=== PATIENT | female | born 1965 | race Caucasian/White ===

== ENCOUNTER 2018-07-06 16:46 | Observation (INO) ==
[2018-07-06 17:21] LABS: Basophils % 0.5 % (0.1-2.0); Eosinophils # 0.2 K/mm3 (0.0-0.4); Eosinophils % 2.5 % (0.1-12.0); Hematocrit 44.5 % (37.0-47.0); Hemoglobin 14.3 g/dL (12.2-16.2); Lymphocytes # 2.6 K/mm3 (0.7-4.5); Lymphocytes % 31.8 % (10-50); Mean Corpuscular HGB Conc 32.1 g/dL (31.8-35.4); Mean Corpuscular Hemoglobin 29.8 pg (27.0-31.2); Mean Corpuscular Volume 92.9 fl (81-99); Mean Platelet Volume 8.4 fl (7.4-10.4); Monocytes # 0.4 K/mm3 (0.1-1.0); Monocytes % 5.2 % (1.7-9.3); Neutrophils # 4.9 K/mm3 (1.8-7.8); Neutrophils % 60.1 % (37.0-80.0); Platelet Count 200 K/mm3 (142-424); Red Blood Count 4.79 M/mm3 (4.20-5.40); Red Cell Distribution Width 12.8 % (11.5-17.5); White Blood Count 8.2 K/mm3 (4.8-10.8)
[2018-07-06 17:37] LABS: Amylase 69 U/L (25-115); Anion Gap 10.6 mEq/L (5-15); Blood Urea Nitrogen 18 mg/dL (7-18); Calcium 9.4 mg/dL (8.5-10.1); Carbon Dioxide 30 mmol/L (21.0-32.0); Chloride 104 mmol/L (98-107); Glucose 105 mg/dL (74-106); Potassium 4.6 mmoL/L (3.5-5.1); Sodium 140 mmol/L (136-145)
[2018-07-06 17:55] LABS: Anion Gap 11.5 mEq/L (5-15); Blood Urea Nitrogen 17 mg/dL (7-18); Calcium 9.2 mg/dL (8.5-10.1); Carbon Dioxide 30 mmol/L (21.0-32.0); Chloride 103 mmol/L (98-107); Creatine Kinase 87 U/L (26-192); Glucose 105 mg/dL (74-106); Lipase 163 u/L (73-393); Potassium 4.5 mmoL/L (3.5-5.1); Sodium 140 mmol/L (136-145)
--- NOTE | 2018-07-06 21:24 | Emergency Department Note ---
ED Disposition Clinical Impression: Obesity (BMI 30.0-34.9), Tobacco use Chest pain Qualifiers: Chest pain type: precordial pain Qualified Code(s): R07.2 - Precordial pain Disposition: Admitted as Observation Condition on Discharge: Good Referrals: Kirby Garcia MD [Primary Care Provider] - - Critical Care Critical Care Time: No Attestation: On 07/06/18, the high probability of a clinically significant, sudden or life threatening deterioration of the following system(s) required my full and direct attention, intervention and personal management. The time I documented below is in addition to time spent performing reported procedures but includes the following listed in this critical care notation. Medical Decision Making - Medical Records Medical records reviewed: Yes: I reviewed the patient's medical records. - Parminder Inquiry Pt receiving controlled substance: No Vital Signs: 07/06/18 17:02 07/06/18 18:42 07/06/18 19:10 Temperature 97.9 F Temperature Source Oral Pulse Rate [Left Radial] 70 61 65 Respiratory Rate 18 Blood Pressure [Right Arm] 158/95 H 131/74 143/78 H Blood Pressure Mean [Right Arm] 116 93 99 Blood Pressure Source [Right Arm] Automatic Cuff Automatic Cuff Automatic Cuff Blood Pressure Position [Right Arm] Sitting Sitting Supine 02 Sat by Pulse Oximetry 96 94 L 97 Oxygen Delivery Method Room Air Room Air Room Air 07/06/18 20:00 Temperature Temperature Source Pulse Rate [Left Radial] 61 Respiratory Rate Blood Pressure [Right Arm] 135/71 Blood Pressure Mean [Right Arm] 92 Blood Pressure Source [Right Arm] Blood Pressure Position [Right Arm] 02 Sat by Pulse Oximetry 92 L Oxygen Delivery Method - Lab Data Lab results reviewed: Yes: I reviewed the patient's lab results. Lab Results 07/06/18 17:10: WBC 8.2, RBC 4.79, Hgb 14.3, Hct 44.5, MCV 92.9, MCH 29.8, MCHC 32.1, RDW 12.8, Plt Count 200, MPV 8.4, Neut % (Auto) 60.1, Lymph % (Auto) 31.8, [place]y % (Auto) 5.2, Eos % (Auto) 2.5, Baso % (Auto) 0.5, Neut # (Auto) 4.9, Lymph # (Auto) 2.6, [place]y # (Auto) 0.4, Eos # (Auto) 0.2, Baso # (Auto) 0.0 07/06/18 17:10: Sodium 140, Potassium 4.6, Chloride 104, Carbon Dioxide 30, Anion Gap 10.6, BUN 18, Creatinine 1.01, Estimated Creat Clear 93, Estimated GFR 58 L, Est GFR ( Amer) 70, Glucose 105, Calcium 9.4, Troponin I < 0.02, Amylase 69 07/06/18 17:10: Sodium 140, Potassium 4.5, Chloride 103, Carbon Dioxide 30, Anion Gap 11.5, BUN 17, Creatinine 1.05 H, Estimated Creat Clear 90, Estimated GFR 55 L, Est GFR ( Amer) 67, Glucose 105, Calcium 9.2, Total Creatine Kinase 87, CK-MB (CK-2) 1.3, CK-MB (CK-2) Rel Index 1.5, Troponin I < 0.02, Lipase 163 Result diagrams: 07/06/18 17:10 07/06/18 17:10 Orders (Tests/Meds): ED MEDICATIONS Discontinued Medications Generic Name Dose Route Start Last Admin Trade Name Freq PRN Reason Stop Dose Admin Aspirin 324 mg 07/06/18 19:17 07/06/18 19:20 Aspirin 81mg Chewable Tablet PO 07/06/18 19:18 324 mg ONCE ONE Administration ORDERS Category Date Time Status XR chest 2V Stat Exams 07/06/18 17:07 Taken ECG Request by /Tran Stat Y 07/06/18 17:07 Ordered - Radiology Data #1 Image(s): Chest Image Reviewed: Yes I reviewed the patient's radiology image Preliminary Findings: Normal/NAD - ECG Data Tracing #1 I reviewed this ECG and interpreted as documented below: Normal Sinus Rhythm: Yes Ischemic changes: non-specific ST-T wave changes Chest Pain HPI - General Chief Complaint: Chest Pain Stated Complaint: ingestion/2wk, possible pulled something in chest Time Seen by Provider: 07/06/18 20:45 Mode of Arrival: Ambulatory Source of Information: Patient, Spouse, Medical Record Limitations: No Limitations Description of Symptoms (Recalled from ER Triage Doc. by RN): c/o pain in the center of her chest, "she feels like she pulled a muscle in her chest". c/o indigestion for 2 weeks. - History of Present Illness HPI narrative: pt with chest pain which started today - sharp and midsternal - new onset - she did have chest pain off-on over the last 2 weeks - no syncope or trauma MD complaint: chest pain indicative of cardiac Onset (ago): hour(s) Duration: intermittent Activity at onset: during rest Pain location: substernal Severity: moderate Quality: sharp Risk Factors for CAD: Family Hx of CAD, Smoking Treatments prior to or on arrival for Cardiac Chest Pain: none - MARIA GUADALUPE Score for Non-Stemi Age of Patient: 50-59 years old Heart Rate: 70-89 bpm Systolic Blood Pressure: 140-159 mmHg Serum Creatinine: 0.80-1.19 mg/dl CHF Killip Class: I-No CHF Other Risk Factors: None Non-Stemi Risk Score: 81 - Related Data On Oral Contraceptives: No Home Medications Medication Instructions Recorded Confirmed No Known Home Medications 07/06/18 07/06/18 Allergies Allergy/AdvReac Type Severity Reaction Status Date / Time No Known Allergies Allergy Verified 07/06/18 17:08 [facility] History - Hepatitis A Screen Drug use history?: No High risk sexual behaviors?: No History of sexually transmitted infection?: No Currently employed?: Yes Childcare worker?: No Do you have indoor plumbing?: Yes Do you have electricity?: Yes Attestation statement:: This patient has been screened for Hepatitis A risk factors. I have reviewed the patient's past medical history: Yes Medical History: Denies:: Diabetes Mellitus Type 1, Diabetes Mellitus Type 2 Other Surgeries: Yes: Amputation: No Fractures: No Comment: Rt kidney removal - Social History Smoking Status: Current every day smoker Tobacco Type: cigarettes # Packs/Day (cigarettes): 1 Alcohol Intake: never Substance Use Type: denies use Occupational Status: employed - Psychiatric History Expresses thoughts of harming self/others: None Suicide Plan Description: No Plan Family Hx:: No significant family history ROS Obtained: Yes All systems reviewed & no additional complaints - Constitutional Constitutional: Denies fever(s) - Eyes Eyes: Denies change in vision - ENT Ears, Nose, Mouth, and Throat: Denies otalgia - Cardiovascular Cardiovascular: Reports chest pain, Denies radiating jaw, neck or arm pain - Respiratory Respiratory: No cough - Gastrointestinal Gastrointestingal: Denies: abdominal pain - Genitourinary Female Genitourinary: Denies flank pain - Musculoskeletal Musculoskeletal: Reports joint pain - Integumentary/Breasts Skin/Breast: Denies rash - Neurologic Neurologic: Denies seizure-like activity Physical Exam - General General appearance: alert, in no apparent distress, obese - Head Head exam: atraumatic - Eye Eye exam: Present: PERRL, EOMI. Absent: scleral icterus - ENT ENT exam: Present: mucous membranes moist - Neck Neck exam: Present: trachea midline - Respiratory Respiratory exam: Present: normal lung sounds bilaterally. Absent: respiratory distress - Cardiovascular Cardiovascular exam: Present: regular rate, systolic murmur - Abdominal Exam Abdominal exam: Present: soft - Extremities Exam Extremities exam: Present: normal inspection. Absent: calf tenderness - Neurological Exam Neurological exam: Present: alert, oriented X3, CN II-XII intact - Psychiatric Psychiatric exam: Present: normal affect - Skin Skin exam: Absent: rash
[2018-07-07 06:31] LABS: Basophils % 0.4 % (0.1-2.0); Eosinophils # 0.3 K/mm3 (0.0-0.4); Eosinophils % 3.1 % (0.1-12.0); Hematocrit 41.9 % (37.0-47.0); Hemoglobin 13.8 g/dL (12.2-16.2); Lymphocytes # 2.3 K/mm3 (0.7-4.5); Lymphocytes % 28.7 % (10-50); Mean Corpuscular HGB Conc 33.1 g/dL (31.8-35.4); Mean Corpuscular Volume 93.8 fl (81-99); Mean Platelet Volume 8.5 fl (7.4-10.4); Monocytes # 0.5 K/mm3 (0.1-1.0); Monocytes % 6.4 % (1.7-9.3); Neutrophils # 4.9 K/mm3 (1.8-7.8); Neutrophils % 61.4 % (37.0-80.0); Platelet Count 183 K/mm3 (142-424); Red Blood Count 4.47 M/mm3 (4.20-5.40); Red Cell Distribution Width 12.8 % (11.5-17.5); White Blood Count 7.9 K/mm3 (4.8-10.8)
[2018-07-07 06:38] LABS: Anion Gap 13.1 mEq/L (5-15); Calcium 9.1 mg/dL (8.5-10.1); Potassium 4.1 mmoL/L (3.5-5.1)
--- NOTE | 2018-07-07 08:03 | Pharmacy Consult Notes ---
[facility] Pharmacy VTE Monitoring - Patient Demographics Admission date: 07/06/18 Report Date: 07/07/18 Time: 08:02 Allergies/Adverse Reactions: Patient Allergies No Known Allergies Allergy (Verified 07/06/18 17:08) Height: 1.68 m Weight: 80.467 kg Patient Problems: Current Active Problems Chest pain (Acute) Obesity (BMI 30.0-34.9) (Acute) Tobacco use (Acute) - VTE Risk Labs: VTE Related Lab Results Hgb 13.8 g/dL (12.2-16.2) 07/07/18 06:03 Hct 41.9 % (37.0-47.0) 07/07/18 06:03 Plt Count 183 K/mm3 (142-424) 07/07/18 06:03 BUN 18 mg/dL (7-18) 07/07/18 06:03 Creatinine 0.88 mg/dL (0.55-1.02) 07/07/18 06:03 Estimated Creat Clear 95 mL/min (50-200) 07/07/18 06:03 Was VTE Risk Assessment Performed: Yes VTE Score: 1 VTE Risk Level: Very Low Risk Clinical Trial Participant: No - Prophylaxis VTE Prophylaxis Ordered?: Yes Types of VTE Prophylaxis: TEDS Knee High
--- NOTE | 2018-07-07 11:09 | Consult Report ---
History of Present Illness Consult date: 07/07/18 (at 1105) Requesting physician: Kirby Garcia Consult reason: chest pain Chief complaint: chest pain History of present illness: This is a 52-year-old white female who presented to the emergency department with complaints of chest pain. The patient states that she was having pain in the center of her chest yesterday that felt like a pulled muscle. She states that it persisted for most of the day yesterday. She states that this was at rest and with exertion. It was worse with exertion and movement. The patient states that it did improve with rest. She states that this was about a 5 out of 10 in intensity. She states that there were no associated symptoms with the chest pain. Her does report that she has been having indigestion and heartburn for approximately 2 weeks. The patient states that this did start about 2 weeks ago and is a burning sensation in her chest. She states that this typically occurs after she eats but then last for an entire day. She has been using some [id number] acid reducers which have minimally helped with her reflux symptoms. She states that her chest pain did improve when she got Nitropaste here at the hospital. Today she denies any chest pain or pressure and is wanting to go home. She denies any shortness of breath or edema. She denies any fever chills nausea vomiting diarrhea PND or orthopnea. She is a smoker and her father at the age of 58 from a myocardial infarction. [facility] History I have reviewed the patient's past medical history: Yes Medical History: Denies:: Diabetes Mellitus Type 1, Diabetes Mellitus Type 2 Have you ever received a pneumonia vaccine?: No Have you received a flu vaccine this season?: No Other Surgeries: Yes: Amputation: No Fractures: No - *Social History Smoking Status: Current every day smoker Tobacco Type: cigarettes # Packs/Day (cigarettes): 1 Alcohol Intake: never Substance Use Type: denies use Occupational Status: employed Travel in the last 8 weeks: None - Psychiatric History Expresses thoughts of harming self/others: None Suicide Plan Description: No Plan *Family Hx:: No significant family history Meds Home Medications Medication Instructions Recorded Confirmed Type No Known Home Medications 07/06/18 07/06/18 History Allergies Allergy/AdvReac Type Severity Reaction Status Date / Time No Known Allergies Allergy Verified 07/06/18 17:08 Review of Systems - Review of Systems Review of systems:: pertinent systems reviewed and negative unless documented below - *Cardiovascular Reports chest pain, Reports chest pain at rest, Reports chest pain with activity - *Gastrointestinal Reports heartburn - *Neurologic Denies seizure-like activity Exam Vital signs and Labs for Last 24 Hours: Temp Pulse Resp BP Pulse Ox 97.8 F 61 18 131/66 95 07/07/18 08:00 07/07/18 08:00 07/07/18 08:00 07/07/18 08:00 07/07/18 08:00 Laboratory Results - last 24 hr 07/06/18 17:10: WBC 8.2, RBC 4.79, Hgb 14.3, Hct 44.5, MCV 92.9, MCH 29.8, MCHC 32.1, RDW 12.8, Plt Count 200, MPV 8.4, Neut % (Auto) 60.1, Lymph % (Auto) 31.8, Stanton % (Auto) 5.2, Eos % (Auto) 2.5, Baso % (Auto) 0.5, Neut # (Auto) 4.9, Lymph # (Auto) 2.6, Stanton # (Auto) 0.4, Eos # (Auto) 0.2, Baso # (Auto) 0.0 07/06/18 17:10: Sodium 140, Potassium 4.6, Chloride 104, Carbon Dioxide 30, Anion Gap 10.6, BUN 18, Creatinine 1.01, Estimated Creat Clear 93, Estimated GFR 58 L, Est GFR ( Amer) 70, Glucose 105, Calcium 9.4, Troponin I < 0.02, Amylase 69 07/06/18 17:10: Sodium 140, Potassium 4.5, Chloride 103, Carbon Dioxide 30, Anion Gap 11.5, BUN 17, Creatinine 1.05 H, Estimated Creat Clear 90, Estimated GFR 55 L, Est GFR ( Amer) 67, Glucose 105, Calcium 9.2, Total Creatine Kinase 87, CK-MB (CK-2) 1.3, CK-MB (CK-2) Rel Index 1.5, Troponin I < 0.02, Lipase 163 07/07/18 06:03: WBC 7.9, RBC 4.47, Hgb 13.8, Hct 41.9, MCV 93.8, MCH 31.0, MCHC 33.1, RDW 12.8, Plt Count 183, MPV 8.5, Neut % (Auto) 61.4, Lymph % (Auto) 28.7, [place] % (Auto) 6.4, Eos % (Auto) 3.1, Baso % (Auto) 0.4, Neut # (Auto) 4.9, Lymph # (Auto) 2.3, Stanton # (Auto) 0.5, Eos # (Auto) 0.3, Baso # (Auto) 0.0 07/07/18 06:03: Sodium 141, Potassium 4.1, Chloride 106, Carbon Dioxide 26, Anion Gap 13.1, BUN 18, Creatinine 0.88, Estimated Creat Clear 95, Estimated GFR 67, Est GFR ( Amer) 82 D, Glucose 112 H, Calcium 9.1, Magnesium 2.0 07/07/18 06:03: Troponin I < 0.02 I & O for Last 24 hours: Intake & Output 07/04/18 07/05/18 07/06/18 07/07/18 23:59 23:59 23:59 23:59 Intake Total 360 / 360 0 / 0 Balance 360 / 360 0 / 0 Weight 200 lb 177 lb 6.4 oz Narrative: Her EKG is normal sinus rhythm with a rate of 69. - Constitutional no acute distress, average body habitus, cooperative - *Routine HEENT Exam Head: Present: normocephalic, atraumatic Eye: Present: EOMI, PERRL ENT: Present: mucous membranes moist - *Routine Neck Exam Present: supple, full ROM, normal carotid upstroke. Absent: JVD, carotid bruit, lymphadenopathy - *Routine Respiratory Exam Present: CTA bilaterally - *Routine Cardiovascular Exam Present: RRR, Normal S1, Normal S2. Absent: murmur, gallop - *Routine Abdominal Exam Present: soft, normoactive bowel sounds. Absent: tenderness - *Routine Extremities Exam Present: full ROM, pulses intact, normal capillary refill. Absent: cyanosis, clubbing, edema - *Routine Skin Exam Present: intact, warm. Absent: erythema, rash - *Routine Neurological Exam Present: alert, oriented X3, CN II-XII intact. Absent: sensory deficit, motor deficit - Routine Psychiatric Exam Present: normal affect, normal thought process - Detailed Eye Exam Eyelids: Left normal inspection Assessment and Plan (1) Chest pain Current visit: Yes Status: Acute Qualifiers: Chest pain type: precordial pain Qualified Code(s): R07.2 - Precordial pain Category: Medical Code(s): R07.9 - Chest pain, unspecified (2) Obesity (BMI 30.0-34.9) Current visit: Yes Status: Acute Category: Medical Code(s): E66.9 - Obesity, unspecified (3) Tobacco use Current visit: Yes Status: Chronic Category: Medical Code(s): Z72.0 - Tobacco use (4) Family history of ischemic heart disease Current visit: Yes Status: Chronic Category: Medical Code(s): Z82.49 - Family history of ischemic heart disease and other diseases of the circulatory system (5) Heartburn Current visit: Yes Status: Acute Category: Medical Code(s): R12 - Heartburn - Assessment and plan all Dx Assessment and Plan for all problems:: Plan: 1. The patient presented to the emergency department with chest pain. She states that this started yesterday and was like a pulled muscle sensation in the center of her chest. There was no radiation of the pain and there were no associated symptoms. This was a 5 out of 10 in intensity. And she does report that leading up to this for approximately 2 weeks she has had heartburn that lasts for a day. The patient is having chest pain which may be typical angina. We will plan to proceed with a GXT Myoview to rule out ischemia. 2. Her echocardiogram is currently pending. 3. Her blood pressure is well controlled. 4. LDL goal is less than 100. We will get a liver and lipid panel today. 5. He does have a family history of ischemic heart disease. Father of a myocardial infarction at 58. This places her at high risk for coronary artery disease. 6. Tobacco cessation is highly advised and counseled. 7. Further recommendations will be made pending the patient's response to treatment and the results of her GXT Myoview and echocardiogram. Thank you for the opportunity to help participate in the care of this patient.
[2018-07-07 11:23] LABS: Albumin Level 3.3 gm/dL (3.4-5.0); Bilirubin,Direct 0.1 mg/dL (0.0-0.2); Bilirubin,Indirect 0.1 mg/dL (0.0-0.9); Bilirubin,Total 0.2 mg/dL (0.2-1.0); Total Protein,Serum 6.7 gm/dL (6.4-8.2)
--- NOTE | 2018-07-07 16:49 | H&P/Discharge Summary ---
General - General Admission date:: 07/06/18 Discharge date: 07/07/18 *Admission Date: 07/06/18 *Chief complaint: chest pain *History of present illness: this wf presented to the [facility] with chest pain which was different for this pt t with chest pain which started today - sharp and midsternal - new onset - she did have chest pain off-on over the last 2 weeks - no syncope or trauma- pt had sig risk factors and was admitted for cardiac eval [facility] History I have reviewed the patient's past medical history: Yes Medical History: Denies:: Diabetes Mellitus Type 1, Diabetes Mellitus Type 2 Have you ever received a pneumonia vaccine?: No Have you received a flu vaccine this season?: No Other Surgeries: Yes: Amputation: No Fractures: No - *Social History Smoking Status: Current every day smoker Tobacco Type: cigarettes # Packs/Day (cigarettes): 1 Alcohol Intake: never Substance Use Type: denies use Occupational Status: employed Travel in the last 8 weeks: None - Psychiatric History Expresses thoughts of harming self/others: None Suicide Plan Description: No Plan Family Hx:: No significant family history Review of Systems - Review of Systems Review of systems:: pertinent systems reviewed and negative unless documented below - Constitutional Denies fever(s) - Eyes Denies discharge - ENT Denies sinus pain - *Cardiovascular Reports chest pain, Reports chest pain at rest, Reports shortness of breath, Denies leg swelling - *Respiratory Denies cough - *Gastrointestinal Denies abdominal pain - *Genitourinary Denies blood in urine - *Musculoskeletal Denies joint pain, Denies joint swelling - Integumentary/Breasts Denies rash - *Neurologic Denies seizure-like activity, Denies seizure-like activity Exam Vital signs and Labs for Last 24 Hours: Temp Pulse Resp BP Pulse Ox 97.8 F 61 18 131/66 95 07/07/18 08:00 07/07/18 08:00 07/07/18 08:00 07/07/18 08:00 07/07/18 08:00 Laboratory Results - last 24 hr 07/06/18 17:10: WBC 8.2, RBC 4.79, Hgb 14.3, Hct 44.5, MCV 92.9, MCH 29.8, MCHC 32.1, RDW 12.8, Plt Count 200, MPV 8.4, Neut % (Auto) 60.1, Lymph % (Auto) 31.8, [place] % (Auto) 5.2, Eos % (Auto) 2.5, Baso % (Auto) 0.5, Neut # (Auto) 4.9, Lymph # (Auto) 2.6, [place] # (Auto) 0.4, Eos # (Auto) 0.2, Baso # (Auto) 0.0 07/06/18 17:10: Sodium 140, Potassium 4.6, Chloride 104, Carbon Dioxide 30, Anion Gap 10.6, BUN 18, Creatinine 1.01, Estimated Creat Clear 93, Estimated GFR 58 L, Est GFR ( Amer) 70, Glucose 105, Calcium 9.4, Troponin I < 0.02, Amylase 69 07/06/18 17:10: Sodium 140, Potassium 4.5, Chloride 103, Carbon Dioxide 30, Anion Gap 11.5, BUN 17, Creatinine 1.05 H, Estimated Creat Clear 90, Estimated GFR 55 L, Est GFR ( Amer) 67, Glucose 105, Calcium 9.2, Total Creatine Kinase 87, CK-MB (CK-2) 1.3, CK-MB (CK-2) Rel Index 1.5, Troponin I < 0.02, Lipase 163 07/07/18 06:03: WBC 7.9, RBC 4.47, Hgb 13.8, Hct 41.9, MCV 93.8, MCH 31.0, MCHC 33.1, RDW 12.8, Plt Count 183, MPV 8.5, Neut % (Auto) 61.4, Lymph % (Auto) 28.7, [place] % (Auto) 6.4, Eos % (Auto) 3.1, Baso % (Auto) 0.4, Neut # (Auto) 4.9, Lymph # (Auto) 2.3, [place] # (Auto) 0.5, Eos # (Auto) 0.3, Baso # (Auto) 0.0 07/07/18 06:03: Sodium 141, Potassium 4.1, Chloride 106, Carbon Dioxide 26, Anion Gap 13.1, BUN 18, Creatinine 0.88, Estimated Creat Clear 95, Estimated GFR 67, Est GFR ( Amer) 82 D, Glucose 112 H, Calcium 9.1, Magnesium 2.0 07/07/18 06:03: Troponin I < 0.02 07/07/18 06:03: Total Bilirubin 0.2, Direct Bilirubin 0.1, Indirect Bilirubin 0.1, AST 13 L, ALT 27, Alkaline Phosphatase 78, Total Protein 6.7, Albumin 3.3 L , Triglycerides 141, Cholesterol 222 H, LDL Cholesterol 157 H, VLDL Cholesterol 28, HDL Cholesterol 37, Cholesterol/HDL Ratio 6.0 H I & O for Last 24 hours: Intake & Output 07/05/18 07/06/18 07/07/18 07/08/18 11:59 11:59 11:59 11:59 Intake Total 360 / 360 Balance 360 / 360 Weight 177 lb 6.4 oz 177 lb 6.39 oz - Constitutional no acute distress - *Routine HEENT Exam Head: Present: normocephalic Eye: Present: EOMI, PERRL ENT: Present: mucous membranes dry - *Routine Neck Exam Present: supple. Absent: JVD, carotid bruit - *Routine Respiratory Exam Present: CTA bilaterally - *Routine Cardiovascular Exam Present: RRR, murmur, S4 - *Routine Abdominal Exam Present: soft - *Routine Extremities Exam Present: full ROM - *Routine Skin Exam Present: intact - *Routine Neurological Exam Present: alert, oriented X3, CN II-XII intact - Routine Psychiatric Exam Present: normal affect Hospital Course Hospital Course: pt did well in hosp and was seen by card -is is a 52-year-old white female who presented to the emergency department with complaints of chest pain. The patient states that she was having pain in the center of her chest yesterday that felt like a pulled muscle. She states that it persisted for most of the day yesterday. She states that this was at rest and with exertion. It was worse with exertion and movement. The patient states that it did improve with r est. She states that this was about a 5 out of 10 in intensity. She states that there were no associated symptoms with the chest pain. Her does report that she has been having indigestion and heartburn for approximately 2 weeks. The patient states that this did start about 2 weeks ago and is a burning sensation in her chest. She states that this typically occurs after she eats but then last for an entire day. She has been using some ubpy-ycl-adzyhyf acid reducers which have minimally helped with her reflux symptoms. She states that her chest pain did improve when she got Nitropaste here at the hospital. Today she denies any chest pain or pressure and is wanting to go home. She denies any shortness of breath or edema. She denies any fever chills nausea vomiting diarrhea PND or orthopnea. She is a smoker and her father at the age of 58 from a myocardial infarction. The patient presented to the emergency department with chest pain. She states that this started yesterday and was like a pulled muscle sensation in the center of her chest. There was no radiation of the pain and there were no associated symptoms. This was a 5 out of 10 in intensity. And she does report that leading up to this for approximately 2 weeks she has had heartburn that lasts for a day. The patient is having chest pain which may be typical angina. We will plan to proceed with a GXT Myoview to rule out ischemia. 2. Her echocardiogram is currently pending. 3. Her blood pressure is well controlled. 4. LDL goal is less than 100. We will get a liver and lipid panel today. 5. He does have a family history of ischemic heart disease. Father of a myocardial infarction at 58. This places her at high risk for coronary artery disease. 6. Tobacco cessation is highly advised and counseled. 7. Further recommendations will be made pending the patient's response to treatment and the results of her GXT Myoview and echocardiogram.M librado perf SPECT rest str CLINICAL INDICATION: CAD ITS.REASON: chest pain ORDERING PHYSICIAN: Kirby Garcia MD PATIENT AGE: 52 years COMPARISON: None DOSE: 10.69mCi technetium Myoview intravenously at rest followed by 32.4mCi technetium Myoview. Resting blood pressure is 142/76. Stress blood pressure 130/83. FINDINGS: Ejection fraction is calculated to be 74%. SPECT and polar map images reviewed. No fixed or reversible defects are evident that would indicate infarction or ischemia IMPRESSION: 1. Normal ejection fraction of 74%. 2. No evidence of ischemia or infarctio pt will be followed in office and will treat tob use and diet and hyperlipidemia Results Labs on day of discharge: Labs from last 24 hours 07/07/18 07/07/18 07/07/18 06:03 06:03 06:03 WBC RBC Hgb Hct MCV MCH MCHC RDW Plt Count MPV Neut % (Auto) Lymph % (Auto) [place] % (Auto) Eos % (Auto) Baso % (Auto) Neut # (Auto) Lymph # (Auto) [place] # (Auto) Eos # (Auto) Baso # (Auto) Sodium 141 Potassium 4.1 Chloride 106 Carbon Dioxide 26 Anion Gap 13.1 BUN 18 Creatinine 0.88 Estimated Creat Clear 95 Estimated GFR 67 Est GFR ( Amer) 82 D Glucose 112 H Calcium 9.1 Magnesium 2.0 Total Bilirubin 0.2 Direct Bilirubin 0.1 Indirect Bilirubin 0.1 AST 13 L ALT 27 Alkaline Phosphatase 78 Total Creatine Kinase CK-MB (CK-2) CK-MB (CK-2) Rel Index Troponin I < 0.02 Total Protein 6.7 Albumin 3.3 L Triglycerides 141 Cholesterol 222 H LDL Cholesterol 157 H VLDL Cholesterol 28 HDL Cholesterol 37 Cholesterol/HDL Ratio 6.0 H Amylase Lipase 07/07/18 07/06/18 07/06/18 06:03 17:10 17:10 WBC 7.9 RBC 4.47 Hgb 13.8 Hct 41.9 MCV 93.8 MCH 31.0 MCHC 33.1 RDW 12.8 Plt Count 183 MPV 8.5 Neut % (Auto) 61.4 Lymph % (Auto) 28.7 [place] % (Auto) 6.4 Eos % (Auto) 3.1 Baso % (Auto) 0.4 Neut # (Auto) 4.9 Lymph # (Auto) 2.3 [place] # (Auto) 0.5 Eos # (Auto) 0.3 Baso # (Auto) 0.0 Sodium 140 140 Potassium 4.5 4.6 Chloride 103 104 Carbon Dioxide 30 30 Anion Gap 11.5 10.6 BUN 17 18 Creatinine 1.05 H 1.01 Estimated Creat Clear 90 93 Estimated GFR 55 L 58 L Est GFR ( Amer) 67 70 Glucose 105 105 Calcium 9.2 9.4 Magnesium Total Bilirubin Direct Bilirubin Indirect Bilirubin AST ALT Alkaline Phosphatase Total Creatine Kinase 87 CK-MB (CK-2) 1.3 CK-MB (CK-2) Rel Index 1.5 Troponin I < 0.02 < 0.02 Total Protein Albumin Triglycerides Cholesterol LDL Cholesterol VLDL Cholesterol HDL Cholesterol Cholesterol/HDL Ratio Amylase 69 Lipase 163 07/06/18 17:10 WBC 8.2 RBC 4.79 Hgb 14.3 Hct 44.5 MCV 92.9 MCH 29.8 MCHC 32.1 RDW 12.8 Plt Count 200 MPV 8.4 Neut % (Auto) 60.1 Lymph % (Auto) 31.8 [place] % (Auto) 5.2 Eos % (Auto) 2.5 Baso % (Auto) 0.5 Neut # (Auto) 4.9 Lymph # (Auto) 2.6 [place] # (Auto) 0.4 Eos # (Auto) 0.2 Baso # (Auto) 0.0 Sodium Potassium Chloride Carbon Dioxide Anion Gap BUN Creatinine Estimated Creat Clear Estimated GFR Est GFR ( Amer) Glucose Calcium Magnesium Total Bilirubin Direct Bilirubin Indirect Bilirubin AST ALT Alkaline Phosphatase Total Creatine Kinase CK-MB (CK-2) CK-MB (CK-2) Rel Index Troponin I Total Protein Albumin Triglycerides Cholesterol LDL Cholesterol VLDL Cholesterol HDL Cholesterol Cholesterol/HDL Ratio Amylase Lipase DS: Diagnosis - Discharge Diagnosis (1) Chest pain Status: Acute (2) Obesity (BMI 30.0-34.9) Status: Acute (3) Tobacco use Status: Chronic (4) Family history of ischemic heart disease Status: Chronic (5) Heartburn Status: Acute (6) Hyperlipidemia Status: Acute Discharge Medications - Medications for Discharge Home Medication List at Discharge: New Nicotine [Nicoderm 21mg/24hr patch] 21 mg TD DAILYP PRN #30 patch.td24 PRN Reason: Nicotine Cravings Atorvastatin Calcium [Lipitor 10mg Tablet] 10 mg PO DAILY #30 tab
--- NOTE | 2018-07-08 11:46 | Cardiology Report ---
PROCEDURE: 2-D M-mode and color Doppler study INDICATIONS FOR THE TEST: Chest pain+ COPD Heart Murmur Tobacco Smoking+ Palpitations Fatigue Syncope Edema Hypertension Diabetes Mellitus Rheumatic Fever SOB ZAIDI Obesity Hyperlipidemia Family History HD Additional History PATIENT INFORMATION HEIGHT: 66 WEIGHT:200 GENDER: Female B/P:135/71 2-D/M-MODE INTERPRETATION: 2-D MEASUREMENTS OBSERVED VALUES IN CMS Right Ventricular Dimension (RVDd) 1.7 Interventricular Septum (Thickness)(IVsd) 1.1 Left Ventricular Internal Dimensions(LVIDd) 4.0 Left Ventricular Posterior Wall (Thickness)(LVPWd) 1.1 Aortic Root 2.4 Aortic Cusp Separation 1.8 Left Atrial Dimensions (LAD) 3.2 2D 1. Left atrium is normal size, left ventricle is normal size, there is no concentric left ventricular hypertrophy, visually estimated ejection fraction 55% with no regional wall motion abnormality. 2. The right atrium and right ventricle are mildly enlarged with normal contractility. 3. The aortic valve is minimally thickened and fibrosed. 4. The mitral and tricuspid valves are grossly normal 5. The pulmonic valve is poorly visualized. 6. No significant pericardial effusion noted. DOPPLER INTERROGATION: Doppler interrogation of the aortic, mitral and tricuspid valvular presence of mild mitral and tricuspid regurgitation, tricuspid regurgitation jet velocity is inadequate for calculation of the right ventricular systolic pressure, diastolic parameters are within normal range. CONCLUSION: 1. Normal left ventricular size, preserved left ventricular systolic function, visually estimated ejection fraction 55% with no regional wall motion abnormality, diastolic parameters are within normal range. 2. Mildly enlarged right ventricle with normal contractility. 3. Mild mitral and tricuspid regurgitation 4. No significant pericardial effusion noted.
== END 2018-07-07 17:35 | disposition home or self-care (01) ==
LOC: 2ND 16:46 → ER 16:46 → 2ND 22:28
PROVIDERS: ADMIT Emergency Medicine; ATTEND Emergency Medicine
CPT/HCPCS: 36415; 71020; 71046; 78452; 80048; 80061; 80076; 82150; 82550; 82553; 83690; 83735; 84484; 85025; 93005; 93017; 93306; 99284; A9502; G0378

== ENCOUNTER → 2018-07-13 14:53 | Outpatient (CLI) | payer SELFPAY ==
--- NOTE | 2018-07-13 14:58 | CT_ITS ---
CT heart w calcium score INDICATION: Chest tightness, abnormal stress test, current smoker ITS.REASON: calcium score ORDERING PHYSICIAN: Zachary Hernandez MD PATIENT AGE: 52 years COMPARISON: None TECHNIQUE: Axial images are obtained without contrast. Sagittal and coronal reformatted images are reviewed as well. All CT scans at the facility use one or more dose reduction, viz: automated exposure control, ma/kV adjustment per patient size (including targeted exams where dose is matched to indication, i.e. head), or iterative reconstruction technique. FINDINGS: The coronary artery calcium score is 49 indicating mild plaque burden and moderate cardiovascular disease risk Incidental note made of centrilobular emphysema with mild bronchial thickening. Calcified granuloma is present in the left upper lobe IMPRESSION: Coronary artery calcium score of 49 indicating mild plaque burden with moderate cardiovascular disease risk
== END ==
PROVIDERS: PCP Emergency Medicine; Visit Provider Internal Medicine Cardiovascular Disease
DX: R07.9 Chest pain, unspecified (principal); Z72.0 Tobacco use; Z82.49 Family history of ischemic heart disease and other diseases of the circulatory system
CPT/HCPCS: 75571

== ENCOUNTER → 2018-08-04 08:38 | Outpatient (CLI) | payer BC, SELFPAY ==
[2018-08-04 10:38] LABS: Chol/HDL Ratio 3.8 (1-3.5); Cholesterol 167 mg/dL (140-200); HDL Cholesterol 44 mg/dL (29-89); LDL Cholesterol 92 mg/dL (0-130); Triglycerides 157 mg/dL (30-200); VLDL Cholesterol 31 mg/dL (0-40)
== END ==
PROVIDERS: Visit Provider Internal Medicine Cardiovascular Disease
DX: E78.5 Hyperlipidemia, unspecified (principal)
CPT/HCPCS: 36415; 80061

== ENCOUNTER 2021-05-02 14:51 | Emergency (ER) | payer BC, SELFPAY ==
[2021-05-02 15:20] VITALS: BP 148/71; PULSE 78; RESP 18; TEMP 36.6; O2SAT 98; BMI 31.3
[2021-05-02 15:49] VITALS: BP 148/71; PULSE 78; RESP 18; TEMP 36.6; O2SAT 98
--- NOTE | 2021-05-02 16:04 | HMH.EDUTC ---
[facility] – [place] Disposition Clinical Impression: Allergic conjunctivitis Qualifiers: Laterality: left Qualified Code(s): H10.12 - Acute atopic conjunctivitis, left eye Disposition: Home, Self-Care Condition on Discharge: Good Instructions: How to Instill Eye Drops, DI for Conjunctivitis Additional Instructions: Use drops as prescribed for the next 4 days Follow up with your Family Doctor if needed If no improvement or any worsening of symptoms in the next 48 hours follow up with [facility] as advised tomorrow or Thursday Return if needed Straight to ER if any life threatening symptoms Prescriptions: Neomycin/Polymyxin B/Dexametha [Maxitrol Eye Drops] 1 drp EYE-LEFT Q6H 4 Days #5 ml Transmission Status: Received by [facility] Referrals: Kirby Garcia MD [Primary Care Provider] - As needed [facility] [Other] (Follow up tomorrow or Thursday morning if no improvement or immediately if any worsening of symptoms) Time of Disposition: 16:28 Medical Decision Making - Parminder Inquiry Pt receiving controlled substance: No Parminder was queried for this patient: No Vital Signs: 05/02/21 15:20 05/02/21 15:49 Temperature 97.8 F 97.8 F Temperature Source Oral Pulse Rate 78 Pulse Rate [Right Brachial] 78 Respiratory Rate 18 18 Blood Pressure 148/71 H Blood Pressure [Right Arm] 148/71 H Blood Pressure Mean [Right Arm] 96 Blood Pressure Source [Right Arm] Automatic Cuff Blood Pressure Position [Right Arm] Sitting 02 Sat by Pulse Oximetry 98 Oxygen Delivery Method Room Air - Physician Consults Physician Consulted: [facility] Time: 16:13 Reason -: Opthalmology Eval/Care Comment/Response: Advised Doctor was with a patient and would call when he got out, Spoke with Dr Jackson and advised him of complaint and appearance of eye He advised ok to start on Maxitrol one drop every 6 hours for four days and have her follow up in the clinic tomorrow or Thursday morning if no improvmenet or any worsening of symptoms [facility] [place] HPI - General Stated complaint: left eye red and swollen Time Seen by Provider: 05/02/21 16:04 Mode of Arrival: Ambulatory Source of Information: Patient Limitations: No Limitations Description of Symptoms (Recalled from Triage Doc. by RN): PATIENT C/O REDNESS AND SWELLING TO LEFT EYE X 3 DAYS HEENT Symptoms (Recalled from RN notes): Yes Resp Symptoms (Recalled from RN notes): No Skin Symptoms (Recalled from RN notes): No MS Symptoms (Recalled from RN notes): No Functional Status (Recalled from RN notes): WNL - History of Present Illness Provider Complaint: Patient states that she has been having redness, watering and irritation in left eye for about 3 days denies FB denies injury States that they have been cleaning alot and has been around dust and thought it may have been her allergies at first States that at times she wakes up they itch and feels irritated States that today wasnt any better so she came in to get checked - Related Data Previous Rx's Medication Instructions Recorded Neomycin/Polymyxin B/Dexametha 1 drp EYE-LEFT Q6H 4 Days #5 ml 05/02/21 [Maxitrol Eye Drops] Allergies Allergy/AdvReac Type Severity Reaction Status Date / Time No Known Allergies Allergy Verified 06/22/19 11:17 - Worker's Comp Is this a Worker's Comp case?: No [facility] History - Hepatitis A Screen Drug use history?: No High risk sexual behaviors?: No History of sexually transmitted infection?: No Currently employed?: No Childcare worker?: No Do you have indoor plumbing?: Yes Do you have electricity?: Yes Attestation statement:: This patient has been screened for Hepatitis A risk factors. I have reviewed the patient's past medical history: Yes Medical History: Reports:: Cancer, Diabetes Mellitus Type 1, Hyperlipidemia Denies:: Diabetes Mellitus Type 2 Comment: R kidney removed Other Surgeries: Yes: Amputation: No Fractures: No Comment: Rt
== END 2021-05-02 16:40 | disposition home or self-care (01) ==
PROVIDERS: Emergency Provider Nurse Practitioner; PCP Emergency Medicine
DX: H10.12 Acute atopic conjunctivitis, left eye (principal); E10.9 Type 1 diabetes mellitus without complications; E78.5 Hyperlipidemia, unspecified; F17.210 Nicotine dependence, cigarettes, uncomplicated
CPT/HCPCS: 99202; G0463

== ENCOUNTER 2021-05-18 12:26 | Emergency (ER) | payer BC, SELFPAY ==
--- NOTE | 2021-05-18 12:25 | ECG_ITS ---
APPROVED REPORT Exam: Resting ECG HR:66 bpm ECG Measurements Heart Rate 66 AXES CA 152 P 58 QRSd 86 QRS 48 QT 398 T 62 QTc 417 Conclusion Normal sinus rhythm Normal ECG Electronically signed by : Blue Fisher MD 05/18/2021 19:55:03
[2021-05-18 12:27] VITALS: BP 190/78; PULSE 77; RESP 16; TEMP 36.6; O2SAT 98; BMI 30.7
--- NOTE | 2021-05-18 12:31 | XR_ITS ---
PROCEDURE INFORMATION: Exam: XR Chest Exam date and time: 05/18/2021 12:31 PM Age: 55 years old Clinical indication: Shortness of breath; Additional info: Chest pressure TECHNIQUE: Imaging protocol: XR of the chest. Views: 1 view. COMPARISON: CR CXR2V XR chest 2V 07/06/2018 5:43 PM FINDINGS: Tubes, catheters and devices: Overlying EKG wires Lungs: Unremarkable. No consolidation. Pleural spaces: Unremarkable. No pleural effusion. No pneumothorax. Heart/Mediastinum: Unremarkable. No cardiomegaly. Bones/joints: Unremarkable. IMPRESSION: No acute process
[2021-05-18 12:53] LABS: Basophils # 0.1 K/mm3 (0-0.2); Basophils % 0.9 % (0.1-2.0); Eosinophils # 0.3 K/mm3 (0.0-0.4); Eosinophils % 3.6 % (0.1-12.0); Hematocrit 44.1 % (37.0-47.0); Hemoglobin 14.7 g/dL (12.2-16.2); Lymphocytes # 1.9 K/mm3 (0.7-4.5); Lymphocytes % 20.5 % (10-50); Mean Corpuscular HGB Conc 33.3 g/dL (31.8-35.4); Mean Corpuscular Hemoglobin 30.4 pg (27.0-31.2); Mean Corpuscular Volume 91.2 fl (81-99); Mean Platelet Volume 8.7 fl (7.4-10.4); Monocytes # 0.4 K/mm3 (0.1-1.0); Neutrophils # 6.4 K/mm3 (1.8-7.8); Neutrophils % 70.9 % (37.0-80.0); Platelet Count 257 K/mm3 (142-424); Red Blood Count 4.84 M/mm3 (4.20-5.40); Red Cell Distribution Width 13.2 % (11.5-17.5); White Blood Count 9.1 K/mm3 (4.8-10.8)
[2021-05-18 13:00] VITALS: BP 131/79; PULSE 57; RESP 18; O2SAT 97
[2021-05-18 13:00] LABS: Chloride 104 mmol/L (98-107); Potassium 3.9 mmoL/L (3.5-5.1); Sodium 140 mmol/L (136-145)
[2021-05-18 13:02] LABS: Lipase 87 U/L (23-300)
[2021-05-18 13:03] LABS: Alanine Aminotransferase 30 U/L (12-78); Albumin Level 4.5 g/dl (3.5-5.0); Albumin/Globulin Ratio 1.4 (1.1-1.8); Alkaline Phosphatase 92 U/L (38-126); Anion Gap 13.9 mEq/L (5-15); Aspartate Amino Transferase 30 U/L (14-36); Bilirubin,Total 0.3 mg/dl (0.2-1.3); Blood Urea Nitrogen 14 mg/dl (7-17); Calcium 9.5 mg/dl (8.4-10.2); Carbon Dioxide 26 mmol/L (22.0-30.0); Creatinine Clearance Estimated 84 mL/min (50-200); Estimated Glomerular Filt Rate 58 ml/min (>60); GFR (African American) 70 ML/MIN (>60); Globulin 3.3 g/dL (1.3-3.2); Glucose 111 mg/dl (74-100); Total Protein,Serum 7.8 g/dl (6.3-8.2)
--- NOTE | 2021-05-18 13:21 | HMH.EDGENADL ---
ED Disposition Clinical Impression: Chest pain Qualifiers: Chest pain type: unspecified Qualified Code(s): R07.9 - Chest pain, unspecified Disposition: Home, Self-Care Condition on Discharge: Fair Instructions: DI for Dyspepsia, Heartburn -- Overview Prescriptions: Famotidine [Acid Controller] 20 mg PO DAILY 30 Days #30 tab Transmission Status: Received by [facility] Referrals: Kirby Garcia MD [Primary Care Provider] - - Critical Care Critical Care Time: No Attestation: On 05/18/21, the high probability of a clinically significant, sudden or life threatening deterioration of the following system(s) required my full and direct attention, intervention and personal management. The time I documented below is in addition to time spent performing reported procedures but includes the following listed in this critical care notation. Medical Decision Making - Medical Records Medical records reviewed: Yes: I reviewed the patient's medical records. - Parminder Inquiry Pt receiving controlled substance: No Vital Signs: 05/18/21 13:00 05/18/21 13:31 Pulse Rate 57 L 60 Respiratory Rate 18 18 Blood Pressure 131/79 132/66 Blood Pressure Mean 96 88 02 Sat by Pulse Oximetry 97 97 - Lab Data Lab results reviewed: Yes: I reviewed the patient's lab results. Lab Results 05/18/21 12:30: WBC 9.1, RBC 4.84, Hgb 14.7, Hct 44.1, MCV 91.2, MCH 30.4, MCHC 33.3, RDW 13.2, Plt Count 257, MPV 8.7, Neut % (Auto) 70.9, Lymph % (Auto) 20.5, [place] % (Auto) 4.0, Eos % (Auto) 3.6, Baso % (Auto) 0.9, Neut # (Auto) 6.4, Lymph # (Auto) 1.9, [place] # (Auto) 0.4, Eos # (Auto) 0.3, Baso # (Auto) 0.1 05/18/21 12:30: Sodium 140, Potassium 3.9, Chloride 104, Carbon Dioxide 26, Anion Gap 13.9, BUN 14, Creatinine 1.00, Estimated Creat Clear 84, Estimated GFR 58 L, Est GFR ( Amer) 70, Glucose 111 H, Calcium 9.5, Total Bilirubin 0.3, AST 30, ALT 30, Alkaline Phosphatase 92, Troponin I < 0.01, Total Protein 7.8, Albumin 4.5, Globulin 3.3 H, Albumin/Globulin Ratio 1.4 05/18/21 12:30: Lipase 87 Result diagrams: 05/18/21 12:30 05/18/21 12:30 Orders (Tests/Meds): ED MEDICATIONS Generic Name Dose Route Start Last Admin Trade Name Freq PRN Reason Stop Dose Admin Sodium Chloride 8 ml 05/18/21 13:19 Sodium Chloride 0.9% 10ml Vial IV 06/17/21 13:18 NEEDED PRN dilute pepcid Discontinued Medications Generic Name Dose Route Start Last Admin Trade Name Freq PRN Reason Stop Dose Admin Famotidine 20 mg 05/18/21 13:19 05/18/21 13:53 Famotidine 20mg/2ml Vial IV 05/18/21 13:20 20 mg ONCE ONE Administration ORDERS Category Date Time Status XR chest portable Stat Exams 05/18/21 12:31 Taken Troponin I Q3H Lab 05/18/21 15:30 Ordered Troponin I Q3H Lab 05/18/21 18:30 Ordered Medical Decision Narrative: Patient is a 55-year-old male presents emergency department chief complaints of chest pain. Differential diagnosis patient includes ACS, GERD, pleurisy, dyspepsia among others. Given this plan to order CBC, CMP, troponin, chest x-ray, treat patient with famotidine and reassess. She states that he is currently asymptomatic, did not have this chest pain and has not had any recent burping. States that she has not eaten today due to fear of worsening pain after eating. Labs are within normal limits, patient did not have an elevated troponin, ECG was normal. Given the patient symptoms since yesterday, discharge patient with 1 troponin and will discharge with famotidine, and follow up with PCP. General Adult HPI - General Stated complaint: CHEST PAIN Time Seen by Provider: 05/18/21 12:30 - History of Present Illness HPI narrative: Patient is a 55-year-old female who is presented emergency department chief complaint of burning chest pressure and belching. Patient states that this began yesterday, is worse after she is eating. She came to the emergency department because it was worse
[2021-05-18 13:23] LABS: Troponin I < 0.01 ng/ml (0.00-0.034)
[2021-05-18 13:31] VITALS: BP 132/66; PULSE 60; RESP 18; O2SAT 97
[2021-05-18 14:00] VITALS: BP 151/87; PULSE 51; RESP 18; O2SAT 98
[2021-05-18 14:31] VITALS: BP 170/91; PULSE 54; RESP 16; O2SAT 98
[2021-05-18 16:00] VITALS: BP 125/78; PULSE 78; RESP 18; TEMP 36.6; O2SAT 98
== END 2021-05-18 16:02 | disposition home or self-care (01) ==
PROVIDERS: Emergency Provider Emergency Medicine; PCP Emergency Medicine
DX: R07.9 Chest pain, unspecified (principal); E10.9 Type 1 diabetes mellitus without complications; E78.5 Hyperlipidemia, unspecified; F17.210 Nicotine dependence, cigarettes, uncomplicated
CPT/HCPCS: 71045; 80053; 83690; 84484; 85025; 93005; 96374; 96375; 99282

== ENCOUNTER → 2021-10-21 13:23 | Outpatient (CLI) | payer BC, SELFPAY | LOC: LAB.DROPOF 10-22 13:24 | PROVIDERS: PCP Emergency Medicine; Visit Provider Emergency Medicine | DX: M77.00 Medial epicondylitis, unspecified elbow (principal) | CPT/HCPCS: 80053; 80061; 82306; 84439; 84443; 85025 ==

== ENCOUNTER → 2021-12-18 18:11 | Outpatient (CLI) | payer BC, SELFPAY ==
[2021-12-18 13:22] LABS: Anion Gap 11.9 mEq/L (5-15); Blood Urea Nitrogen 16 mg/dl (7-17); Calcium 9.4 mg/dl (8.4-10.2); Carbon Dioxide 27 mmol/L (22.0-30.0); Chloride 105 mmol/L (98-107); Estimated Glomerular Filt Rate 65 ml/min (>60); GFR (African American) 78 ML/MIN (>60); Glucose 110 mg/dl (74-100); Potassium 4.9 mmoL/L (3.5-5.1); Sodium 139 mmol/L (136-145)
== END ==
PROVIDERS: PCP Emergency Medicine; Visit Provider Emergency Medicine
DX: N28.9 Disorder of kidney and ureter, unspecified (principal)
CPT/HCPCS: 80048

== ENCOUNTER 2022-03-25 18:07 | Emergency (ER) | payer BC, SELFPAY ==
--- NOTE | 2022-03-25 18:14 | XR_ITS ---
PROCEDURE INFORMATION: Exam: XR Pelvis Exam date and time: 03/25/2022 6:22 PM Age: 56 years old Clinical indication: Injury or trauma; Fall; Blunt trauma (contusions or hematomas); Bilateral; Hip TECHNIQUE: Imaging protocol: Radiologic exam of the pelvis. Views: 1 or 2 view. COMPARISON: CT ABDOMEN PELVIS WO CON 06/19/2019 2:41 PM FINDINGS: Bones/joints: No acute fracture or malalignment. Pubic symphysis and bilateral sacroiliac joints are congruent. Soft tissues: Unremarkable. IMPRESSION: No evidence of acute osseous abnormality in the pelvis.
--- NOTE | 2022-03-25 18:14 | XR_ITS ---
PROCEDURE INFORMATION: Exam: XR Chest Exam date and time: 03/25/2022 6:20 PM Age: 56 years old Clinical indication: Injury or trauma; Fall; Blunt trauma (contusions or hematomas) TECHNIQUE: Imaging protocol: Radiologic exam of the chest. Views: 1 view. COMPARISON: CR XR CHEST PORTABLE 05/18/2021 1:28 PM FINDINGS: Lungs: No acute airspace consolidation. No appreciable pulmonary edema. Pleural spaces: No pleural effusion. No pneumothorax. Heart/Mediastinum: Cardiomediastinal silouhette is within normal limits. Bones/joints: No evidence of acute osseous abnormality. IMPRESSION: No acute findings.
--- NOTE | 2022-03-25 18:37 | XR_ITS ---
PROCEDURE INFORMATION: Exam: XR Right Humerus Exam date and time: 03/25/2022 6:25 PM Age: 56 years old Clinical indication: Injury or trauma; Fall; Blunt trauma (contusions or hematomas); Arm, upper; Right TECHNIQUE: Imaging protocol: Radiologic exam of the Right humerus. Views: 2 or more views. COMPARISON: CR XR CHEST PORTABLE 03/25/2022 6:20 PM FINDINGS: Bones/joints: No acute fracture or malalignment. Soft tissues: Unremarkable. IMPRESSION: No evidence of acute osseous abnormality in the right humerus.
--- NOTE | 2022-03-25 18:37 | XR_ITS ---
PROCEDURE INFORMATION: Exam: XR Right Forearm Exam date and time: 03/25/2022 6:28 PM Age: 56 years old Clinical indication: Injury or trauma; Fall; Blunt trauma (contusions or hematomas); Arm, lower; Right TECHNIQUE: Imaging protocol: Radiologic exam of the Right forearm. Views: 2 views. COMPARISON: No relevant prior studies available. FINDINGS: Bones/joints: No acute fracture or malalignment. Soft tissues: Unremarkable. IMPRESSION: No acute osseous abnormality in the right forearm.
--- NOTE | 2022-03-25 18:37 | XR_ITS ---
PROCEDURE INFORMATION: Exam: XR Right Hand Exam date and time: 03/25/2022 6:29 PM Age: 56 years old Clinical indication: Injury or trauma; Fall; Blunt trauma (contusions or hematomas); Hand; Right TECHNIQUE: Imaging protocol: Radiologic exam of the Right hand. Views: 3 or more views. COMPARISON: CR XR FOREARM RT 2V 03/25/2022 6:28 PM FINDINGS: Bones/joints: Acute volar plate avulsion fracture of the right 1st distal phalanx. No other evidence of acute fracture in the right hand. Soft tissues: Soft tissue edema noted. IMPRESSION: Acute volar plate avulsion fracture along the ulnar aspect of the right 1st distal phalanx.
[2022-03-25 18:52] VITALS: BP 166/81; PULSE 71; RESP 17; TEMP 36.8; O2SAT 96; BMI 28.3
--- NOTE | 2022-03-25 19:13 | PC.NURSE ---
speaking with [facility] hand specialist
--- NOTE | 2022-03-25 19:13 | PC.NURSE ---
on phone with dr galdamez with
--- NOTE | 2022-03-25 19:32 | HMH.EDGENADL ---
Discharge Plan Disposition Patient Disposition: Home, Self-Care Condition: Good Prescriptions Prescriptions: New cephalexin 500 mg capsule 500 mg PO Q6H Qty: 28 0RF No Action atorvastatin 10 mg tablet 10 mg PO HS Qty: 90 0RF Dialyvite Vitamin D3 Max 1,250 mcg (50,000 unit) tablet 1,250 mcg PO WEEKLY Qty: 12 3RF famotidine 20 mg tablet 20 mg PO DAILY 30 Days Qty: 30 3RF Referrals Follow up/Referrals: Kirby Garcia MD [Primary Care Provider] - See instructions Activity Restrictions/Add. Instructions Additional Instructions/Restrictions: Keep splint and bandage on. [facility] will contact you tomorrow to arrange follow-up appointment next week in their hand surgery clinic. Take Keflex as prescribed. Tylenol or ibuprofen for pain. Additional instructions for TRAUMA: Return to the emergency department immediately if severe headache, altered mental status or confusion, severe chest pain, shortness of breath, abdominal pain, vomiting, severe neck pain, numbness or weakness of arms or legs. Clinical Impressions Clinical Impression: Open fracture of right thumb, Avulsion fracture of right thumb, Fall, Contusion of arm, right, Abrasion, multiple sites Instructions Patient Instructions: DI for Laceration Repair Discharge ED Provider: Apolinar Novak General Adult HPI General Chief complaint: Wound/Laceration Stated complaint: Wrist Pain Time Seen by Provider: 03/25/22 18:30 Mode of Arrival: Ambulatory Source of Information: Patient Limitations: No Limitations Description of Symptoms (Recalled from ER Triage Doc. by RN): Pt presents with lac to rt thumb, abrasion to lt jernigan, puncture to rt jernigan. Pt states that her and grandson were standing on a concrete slab when the slab broke, causing them to fall 7-8 ft. History of Present Illness HPI narrative: The patient was standing on a concrete slab that was part of a salad that was torn down. The slab gave way and she fell 7 feet into the cellar. She landed face forward. She has a bruise of her right upper arm and some abrasions on her right forearm, but her main complaint is pain in her right thumb. She has a laceration of the thumb and pain at the region of the IP joint. She has an abrasion on her left jernigan and a puncture wound on her right jernigan. She is able to ambulate without difficulty. She denies any other injuries. She did not strike her head and has no head or neck pain. No chest pain, abdominal pain, back pain. No numbness or weakness. Last tetanus sensation was many years ago. Related Data Previous Rx's Medication Instructions Recorded atorvastatin 10 mg tablet 10 mg PO HS #90 tabs 02/17/22 cholecalciferol (vitamin D3) 1,250 1,250 mcg PO WEEKLY #12 tabs 02/17/22 mcg (50,000 unit) tablet (Dialyvite Vitamin D3 Max) famotidine 20 mg tablet 20 mg PO DAILY 30 days #30 tabs 02/17/22 cephalexin 500 mg capsule 500 mg PO Q6H #28 caps 03/25/22 Allergies Allergy/AdvReac Type Severity Reaction Status Date / Time No Known Allergies Allergy Verified 02/17/22 11:35 PFSH [facility] Social History Smoking Status: Current every day smoker tobacco type: cigarettes packs per day: 1 alcohol intake: never substance use type: denies use current occupational status: employed Travel in the last 8 weeks: None ROS Obtained: Yes Systems reviewed as appropriate & no additional complaints except as documented Constitutional Constitutional: Denies headache(s) and Denies weakness Eyes Eyes: Denies change in vision ENT Ears, Nose, Mouth, and Throat: Denies headache(s) Cardiovascular Cardiovascular: Denies chest pain Respiratory Respiratory: Denies shortness of breath Gastrointestinal Gastrointestingal: Denies abdominal pain or vomiting Musculoskeletal Musculoskeletal: Reports as per HPI and Denies numbness Integumentary/Breasts Skin/Breast: Reports wounds
[2022-03-25 20:55] VITALS: BP 149/78; PULSE 70; RESP 16; TEMP 36.8; O2SAT 96
== END 2022-03-25 20:56 | disposition home or self-care (01) ==
PROVIDERS: Emergency Provider Emergency Medicine; PCP Emergency Medicine
DX: S62.521B Displaced fracture of distal phalanx of right thumb, initial encounter for open fracture (principal); S40.021A Contusion of right upper arm, initial encounter; S81.831A Puncture wound without foreign body, right lower leg, initial encounter; S80.812A Abrasion, left lower leg, initial encounter; S50.811A Abrasion of right forearm, initial encounter; W20.1XXA Struck by object due to collapse of building, initial encounter; Y92.89 Other specified places as the place of occurrence of the external cause; Z23 Encounter for immunization
CPT/HCPCS: 12002; 71045; 72170; 73060; 73090; 73130; 90471; 90714; 99285

== ENCOUNTER 2022-05-07 15:00 | Outpatient (RCR) | payer BC, SELFPAY | END 2022-05-07 15:05 | disposition home or self-care (01) | LOC: OT 15:00 | PROVIDERS: Visit Provider Plastic Surgery Surgery of the Hand | DX: S61.011S Laceration without foreign body of right thumb without damage to nail, sequela (principal) | CPT/HCPCS: 97010; 97014; 97018; 97035; 97110; 97140; 97165; G0283 ==

== ENCOUNTER 2023-01-07 14:18 | Emergency (ER) | payer BC, SELFPAY ==
[2023-01-07 14:18] VITALS: BP 155/68; PULSE 66; RESP 16; TEMP 36.8; O2SAT 98; BMI 28.3
--- NOTE | 2023-01-07 14:34 | EXP.UTC ---
Discharge Plan Disposition Patient Disposition: Home, Self-Care Condition: Good Prescriptions Prescriptions: New sulfamethoxazole-trimethoprim [Bactrim DS] 800-160 mg Tablet 1 tab PO BID Qty: 20 0RF cephalexin 500 mg capsule 500 mg PO QID Qty: 40 0RF prednisone 10 mg tablet 10 mg PO BID 5 Days Qty: 10 0RF No Action ergocalciferol (vitamin D2) 1,250 mcg (50,000 unit) capsule 50,000 unit PO WEEKLY atorvastatin 10 mg tablet See Rx Instructions .ROUTE .COMPLEX Qty: 30 2RF Dose Instruction: TAKE ONE TABLET BY MOUTH EVERY NIGHT AT BEDTIME Rx Instructions: TAKE ONE TABLET BY MOUTH EVERY NIGHT AT BEDTIME famotidine 20 mg tablet See Rx Instructions .ROUTE .COMPLEX Qty: 30 2RF Dose Instruction: TAKE ONE TABLET BY MOUTH ONCE A DAY Rx Instructions: TAKE ONE TABLET BY MOUTH ONCE A DAY Referrals Follow up/Referrals: Kirby Garcia MD [Primary Care Provider] - See instructions Activity Restrictions/Add. Instructions Additional Instructions/Restrictions: Rest the extremity, Elevate the extremity as tolerated while you are resting. Take tylenol or ibuprofen for pain. Take the medications as directed. Watch the area for worsening swelling, redness, etc, Return or go to the er for any concerns. Follow up with your regular doctor. GO TO THE ER FOR ANY WORSENING SYMPTOMS Clinical Impressions Clinical Impression: Cellulitis of arm, left Stand Alone Forms Stand Alone Forms: Work/School Release Instructions Patient Instructions: Cellulitis Discharge ED Provider: Elkin Jordan [facility] General Stated complaint: Lt arm swollen Mode of Arrival: Ambulatory Source of Information: Patient Limitations: No Limitations Time Seen by Provider: 01/07/23 14:34 Description of Symptoms (Recalled from Triage Doc. by RN): Patient states her left elbow began swelling at work yesterday and hasn't gotten any better. HEENT Symptoms (Recalled from RN notes): No Resp Symptoms (Recalled from RN notes): No Skin Symptoms (Recalled from RN notes): No MS Symptoms (Recalled from RN notes): Yes Functional Status (Recalled from RN notes): wnl History of Present Illness Provider Complaint: She states that she has had redness and swelling of her left forearm just below her elbow since yesterday. She denies any injury, sting, recent iv sticks or lab draws. She denies any history of gout. She denies fever, but she has felt kind of chilly . She is not a known diabetic. Related Data Home Medications Medication Instructions Recorded Confirmed ergocalciferol (vitamin D2) 1,250 50,000 unit PO WEEKLY 08/15/22 08/15/22 mcg (50,000 unit) capsule Previous Rx's Medication Instructions Recorded atorvastatin 10 mg tablet See Rx Instructions .Route 08/15/22 .COMPLEX #30 tabs famotidine 20 mg tablet See Rx Instructions .Route 12/22/22 .COMPLEX #30 tabs cephalexin 500 mg capsule 500 mg PO QID #40 caps 01/07/23 prednisone 10 mg tablet 10 mg PO BID 5 days #10 tabs 01/07/23 sulfamethoxazole 800 1 tab PO BID #20 tabs 01/07/23 mg-trimethoprim 160 mg tablet (Bactrim DS) Allergies Allergy/AdvReac Type Severity Reaction Status Date / Time No Known Allergies Allergy Verified 08/15/22 09:17 Worker's Comp Is this a Worker's Comp case?: No [facility] Disclaimer: The information contained in this section may have been updated after the patient was seen, as this information can be updated by other users. Social History Smoking Status: Current every day smoker tobacco type: cigarettes packs per day: 1 alcohol intake: never substance use type: denies use current occupational status: employed Travel in the last 8 weeks: None ROS Obtained: Yes All systems reviewed & no additional complaints except as documented Constitutional Constitutional: Denies chills and Denies fever(s) Eyes Eyes: Denies eye discha
[2023-01-07 15:08] VITALS: BP 155/68; PULSE 66; RESP 16; TEMP 36.8; O2SAT 98
== END 2023-01-07 15:09 | disposition home or self-care (01) ==
PROVIDERS: Emergency Provider Nurse Practitioner Family; PCP Emergency Medicine
DX: L03.114 Cellulitis of left upper limb (principal); F17.210 Nicotine dependence, cigarettes, uncomplicated
CPT/HCPCS: 99212; 99214; G0463

== ENCOUNTER → 2023-02-06 16:38 | Outpatient (CLI) | payer BC, SELFPAY ==
[2023-02-06 13:25] LABS: Basophils % 0.6 % (0.1-2.0); Eosinophils # 0.2 K/mm3 (0.0-0.4); Eosinophils % 3.1 % (0.1-12.0); Hematocrit 41.3 % (37.0-47.0); Hemoglobin 12.9 g/dL (12.2-16.2); Lymphocytes # 1.6 K/mm3 (0.7-4.5); Lymphocytes % 27.1 % (10-50); Mean Corpuscular HGB Conc 31.3 g/dL (31.8-35.4); Mean Corpuscular Hemoglobin 30.3 pg (27.0-31.2); Mean Corpuscular Volume 96.9 fl (81-99); Mean Platelet Volume 8.7 fl (7.4-10.4); Monocytes # 0.3 K/mm3 (0.1-1.0); Monocytes % 4.8 % (1.7-9.3); Neutrophils # 3.9 K/mm3 (1.8-7.8); Neutrophils % 64.5 % (37.0-80.0); Platelet Count 229 K/mm3 (142-424); Red Blood Count 4.26 M/mm3 (4.20-5.40); Red Cell Distribution Width 13.1 % (11.5-17.5)
[2023-02-06 13:34] LABS: Chloride 108 mmol/L (98-107)
[2023-02-06 13:35] LABS: Potassium 4.3 mmoL/L (3.5-5.1); Sodium 142 mmol/L (136-145)
[2023-02-06 13:37] LABS: Bilirubin,Unconjugated 0.2 mg/dL (0.0-1.1); Blood Urea Nitrogen 19 mg/dl (7-17); Estimated Glomerular Filt Rate 65 ml/min (>60); GFR (African American) 78 ML/MIN (>60)
[2023-02-06 13:38] LABS: Alanine Aminotransferase 17 U/L (12-78); Albumin Level 3.9 g/dl (3.5-5.0); Albumin/Globulin Ratio 1.4 (1.1-1.8); Alkaline Phosphatase 90 U/L (38-126); Anion Gap 14.3 mEq/L (5-15); Aspartate Amino Transferase 23 U/L (14-36); Bilirubin,Direct 0.4 mg/dl (0.0-0.4); Bilirubin,Indirect 0.2 mg/dL (0.0-0.9); Bilirubin,Total 0.6 mg/dl (0.2-1.3); Calcium 9.6 mg/dl (8.4-10.2); Carbon Dioxide 24 mmol/L (22.0-30.0); Cholesterol 155 mg/dl (140-200); Globulin 2.8 g/dL (1.3-3.2); Glucose 112 mg/dl (74-100); Total Protein,Serum 6.7 g/dl (6.3-8.2); Triglycerides 72 mg/dl (30-150); VLDL Cholesterol 14 mg/dL (0-40)
[2023-02-06 13:39] LABS: HDL Cholesterol 52 mg/dl (40-60)
[2023-02-06 13:49] LABS: Direct LDL Cholesterol 75.74 mg/dL (100-129)
[2023-02-06 13:53] LABS: 25-OH Vitamin D, Total 67.5 ng/mL (30-100)
[2023-02-06 14:03] LABS: Thyroid Stimulating Hormone 1.21 uIU/mL (0.465-4.68)
== END ==
LOC: LAB.DROPOF 16:39
PROVIDERS: PCP Emergency Medicine; Visit Provider Family Medicine
DX: E55.9 Vitamin D deficiency, unspecified (principal); E78.5 Hyperlipidemia, unspecified; E66.3 Overweight; Z68.28 Body mass index [BMI] 28.0-28.9, adult
CPT/HCPCS: 80053; 80061; 80076; 82306; 84443; 85025

== ENCOUNTER → 2023-02-19 07:50 | Outpatient (CLI) | payer BC, SELFPAY ==
--- NOTE | 2023-02-19 07:50 | MM_ITS ---
PROCEDURE INFORMATION: Exam: MG Bilateral Screening 3D Mammography Exam date and time: 02/19/2023 7:59 AM Age: 57 years old Clinical indication: Screening examination; No personal or family history of breast cancer TECHNIQUE: Imaging protocol: Bilateral Screening tomosynthesis and 2D mammography including computer-aided detection (CAD) when performed. COMPARISON: 1. MG DMSB DIG MAMM-SCREEN ALLAN W/CAD 11/27/2016 4:33 PM 2. MG MA MAMMO SCRN DIGITL BILAT 06/14/2013 3:31 PM FINDINGS: MAMMOGRAPHY: Breast composition: There are scattered areas of fibroglandular density. Mass: 0.6 cm mass in the middle third of the right upper outer quadrant Architectural distortion: None. Calcifications: No suspicious calcifications. Asymmetric density: None. Skin thickening: None. Axillary adenopathy: None. IMPRESSION: Patient to be recalled for right breast ultrasound for further evaluation of a right breast mass. ASSESSMENT: BI-RADS Category 0: Incomplete- Need Additional Imaging Evaluation and/or Prior Mammograms for Comparison
== END ==
PROVIDERS: PCP Emergency Medicine
DX: Z12.31 Encounter for screening mammogram for malignant neoplasm of breast (principal)
CPT/HCPCS: 77063; 77067

== ENCOUNTER → 2023-03-10 14:14 | Outpatient (CLI) | payer BC, SELFPAY ==
--- NOTE | 2023-03-10 14:14 | US_ITS ---
PROCEDURE INFORMATION: Exam: US Right Breast, Complete Exam date and time: 03/10/2023 2:21 PM Age: 57 years old Clinical indication: Patient recalled for further evaluation of a right breast mass TECHNIQUE: Imaging protocol: Complete ultrasound of all four quadrants of the right breast and the retroareolar regions, including ultrasound of the axilla when performed. COMPARISON: MG MM DIG SCREENING MAMM BI W/CAD 02/19/2023 7:59 AM FINDINGS: Breast: Sonographic images of the right breast including the retroareolar region, all 4 quadrants and the axilla do not demonstrate any solid masses. Incidental 0.2 cm cyst in the 10 o'clock axis 6 cm from the nipple. The 0.6 cm mass on mammography in the right upper outer quadrant is not seen on sonography. No architectural distortion or acoustical shadowing. No skin thickening or axillary adenopathy. IMPRESSION: Probably benign mammographically visible subcentimeter mass. A six-month follow-up diagnostic right mammogram is recommended to ensure stability over time ASSESSMENT: BI-RADS Category 3: Probably benign
== END ==
LOC: RAD 14:14
PROVIDERS: PCP Emergency Medicine; Visit Provider Emergency Medicine
DX: N63.10 Unspecified lump in the right breast, unspecified quadrant (principal); R92.8 Other abnormal and inconclusive findings on diagnostic imaging of breast
CPT/HCPCS: 76641

== ENCOUNTER 2023-06-23 11:46 | Emergency (ER) | payer BC, SELFPAY ==
[2023-06-23 12:15] VITALS: BP 126/72; PULSE 76; RESP 18; TEMP 36.8; O2SAT 95; BMI 29.1
[2023-06-23 12:19] LABS: Apearance,Urine Clear (Clear); Color,Urine Yellow (Yellow)
[2023-06-23 12:20] LABS: Bilirubin,Urine Negative (Negative); Blood, Urine Negative (Negative); Glucose,Urine (UA) Negative (Negative); Ketones,Urine Negative (Negative); Protein,Urine 1+ (Negative); UTC Leukocyte Esterase,Urine Negative (Negative); UTC Nitrate,Urine Negative (Negative); Urobilinogen,Urine 1 EU/dl (0.2)
--- NOTE | 2023-06-23 12:20 | ED_ITS ---
Discharge Plan Disposition Patient Disposition: Home, Self-Care Condition: Good Prescriptions Prescriptions: New ondansetron 4 mg Tablet,Disintegrating 4 mg PO Q8H PRN (Reason: Nausea) Qty: 12 0RF No Action atorvastatin 10 mg tablet See Rx Instructions .ROUTE .COMPLEX Qty: 30 2RF Dose Instruction: TAKE ONE TABLET BY MOUTH EVERY NIGHT AT BEDTIME Rx Instructions: TAKE ONE TABLET BY MOUTH EVERY NIGHT AT BEDTIME famotidine 20 mg tablet See Rx Instructions .ROUTE .COMPLEX Qty: 30 1RF Dose Instruction: TAKE ONE TABLET BY MOUTH ONCE A DAY Rx Instructions: TAKE ONE TABLET BY MOUTH ONCE A DAY ergocalciferol (vitamin D2) 1,250 mcg (50,000 unit) capsule See Rx Instructions .ROUTE .COMPLEX Qty: 4 0RF Dose Instruction: TAKE ONE CAPSULE BY MOUTH EVERY WEEK Rx Instructions: TAKE ONE CAPSULE BY MOUTH EVERY WEEK Referrals Follow up/Referrals: Urbano Gutiérrez DO [Primary Care Provider] - See instructions Activity Restrictions/Add. Instructions Additional Instructions/Restrictions: Drink plenty of fluids. Take tylenol for pain or fever. Take the medications as directed. Follow up with your regular doctor. GO TO THE ER FOR ANY WORSENING SYMPTOMS Clinical Impressions Clinical Impression: Gastroenteritis Stand Alone Forms Stand Alone Forms: Work/School Release Instructions Patient Instructions: Viral Gastroenteritis, DI for Viral Gastroenteritis -- Adult, Ondansetron Discharge ED Provider: Elkin Jordan [facility] General Stated complaint: right side pain, no accident Time Seen by Provider: 06/23/23 12:20 History of Present Illness Provider Complaint: She states that since yesterday she has been having abdominal cramping, nausea and diarrhea. She denies abdominal pain. She states that eating causes her to have abdominal cramping and diarrhea. She denies any fever/chills. She denies any urinary symptoms. Related Data Previous Rx's Medication Instructions Recorded atorvastatin 10 mg tablet See Rx Instructions .Route 05/15/23 .COMPLEX #30 tabs famotidine 20 mg tablet See Rx Instructions .Route 06/02/23 .COMPLEX #30 tabs ergocalciferol (vitamin D2) 1,250 See Rx Instructions .Route 06/08/23 mcg (50,000 unit) capsule .COMPLEX #4 caps ondansetron 4 mg disintegrating 4 mg PO Q8H PRN Nausea #12 tabs 06/23/23 tablet Allergies Allergy/AdvReac Type Severity Reaction Status Date / Time No Known Allergies Allergy Verified 06/23/23 12:27 [facility] Disclaimer: The information contained in this section may have been updated after the patient was seen, as this information can be updated by other users. Medical History (Updated 06/23/23 @ 12:29 by Elkin Jordan APRN) Vitamin D deficiency Social History Smoking Status: Current every day smoker tobacco type: cigarettes packs per day: 1 alcohol intake: never substance use type: denies use current occupational status: employed Travel in the last 8 weeks: None ROS Obtained: Yes All systems reviewed & no additional complaints except as documented Constitutional Constitutional: Denies chills, Denies fever(s) and Reports poor appetite ENT Ears, Nose, Mouth, and Throat: Denies dizziness and Denies sore throat Cardiovascular Cardiovascular: Denies dyspnea Respiratory Respiratory: Denies chest congestion, Denies cough and Denies dyspnea Gastrointestinal Gastrointestingal: Reports as per HPI, cramping, diarrhea and nausea; Denies abdominal pain or vomiting Genitourinary Female Genitourinary: Denies difficulty voiding, Denies dysuria, Denies hematuria, Denies urinary frequency, Denies urinary incontinence, Denies urinary hesitancy and Denies urinary urgency Musculoskeletal Musculoskeletal: Denies arthralgias Integumentary/Breasts Skin/Breast: Denies rash Neurologic Neurologic: Denies dizziness Physical Exam General General appearance: alert and in no apparent distress Head Head exam: atraumatic and normocephalic Eye Eye exam: Present normal appearance, PERRL and EOMI ENT ENT exam: Present normal exam, normal oropharynx, mucous membranes moist, TM's normal bilaterally and normal external ear exam Neck Neck exam: Present normal inspection, full ROM and trachea midline; Absent tenderness, meningismus or lymphadenopathy Chest Chest inspection: Present normal inspection and symmetric chest wall rise; Absent tenderness, rash or abscess Respiratory Respiratory exam: Present normal lung sounds bilaterally; Absent respiratory distress, wheezes or stridor Cardiovascular Cardiovascular exam: Present regular rate and normal rhythm; Absent irregular rhythm, systolic murmur, diastolic murmur or JVD Abdominal Exam Abdominal exam: Present soft and hyperactive bowel sounds; Absent distention, tenderness, guarding, rebound, rigidity, psoas sign, obturator sign, heel tap s ign, Hkan's sign, Rovsing's sign or tenderness at McBurney's Point Extremities Exam Extremities exam: Present normal inspection and full ROM; Absent tenderness Back Exam Back exam: Present normal inspection and full ROM; Absent tenderness, CVA tenderness (R) or CVA tenderness (L) Neurological Exam Neurological exam: Present alert, oriented X3 and CN II-XII intact Psychiatric Psychiatric exam: Present normal affect and normal mood Skin Skin exam: Present warm, dry, intact and normal color Lymphatic Lymphatic Findings: no adenopathy Medical Decision Making Medical Records Medical records reviewed: No I reviewed the patient's medical records. Parminder Inquiry Pt receiving controlled substance: No Lab Data Lab results reviewed: Yes I reviewed the patient's lab results.
[2023-06-23 12:45] VITALS: BP 126/72; PULSE 76; RESP 18; TEMP 36.8; O2SAT 95
== END 2023-06-23 12:45 | disposition home or self-care (01) ==
PROVIDERS: Emergency Provider Nurse Practitioner Family; PCP Internal Medicine
DX: A08.4 Viral intestinal infection, unspecified (principal); R11.2 Nausea with vomiting, unspecified; R10.819 Abdominal tenderness, unspecified site; F17.210 Nicotine dependence, cigarettes, uncomplicated
CPT/HCPCS: 81003; 99212; 99214; G0463

== ENCOUNTER 2023-06-26 02:23 | Emergency (ER) | payer BC, SELFPAY ==
[2023-06-26 02:24] VITALS: BP 189/90; PULSE 70; RESP 19; TEMP 36.5; O2SAT 97; BMI 28.9
[2023-06-26 02:30] VITALS: BP 189/90; PULSE 70; RESP 20; O2SAT 98
--- NOTE | 2023-06-26 02:44 | CT_ITS ---
PROCEDURE INFORMATION: Exam: CT Abdomen And Pelvis With Contrast Exam date and time: 06/26/2023 3:06 AM Age: 57 years old Clinical indication: Abdominal pain; Additional info: Ruq abd pain TECHNIQUE: Imaging protocol: Computed tomography of the abdomen and pelvis with contrast. Radiation optimization: All CT scans at this facility use at least one of these dose optimization techniques: automated exposure control; mA and/or kV adjustment per patient size (includes targeted exams where dose is matched to clinical indication); or iterative reconstruction. Contrast material: ISOVUE; Contrast volume: 75 ml; Contrast route: IV; COMPARISON: CT ABDOMEN PELVIS WO CON 06/19/2019 2:41 PM FINDINGS: Liver: Normal. No mass. Gallbladder and bile ducts: Normal. No calcified stones. No ductal dilation. Pancreas: Normal. No ductal dilation. Spleen: Normal. No splenomegaly. Adrenal glands: Normal. No mass. Kidneys and ureters: There is a left pelvic rounded hypodensity measuring 5.7 x 4.9 x 4.8 cm. The right kidney is surgically absent. Stomach and bowel: Unremarkable. No obstruction. No mucosal thickening. Appendix: No evidence of appendicitis. Intraperitoneal space: Unremarkable. No free air. No significant fluid collection. Vasculature: Unremarkable. No abdominal aortic aneurysm. Lymph nodes: Unremarkable. No enlarged lymph nodes. Urinary bladder: Unremarkable as visualized. Reproductive: Unremarkable as visualized. Bones/joints: Unremarkable. No acute fracture. Soft tissues: Unremarkable. IMPRESSION: Simple appearing 5.7 cm left adnexal cyst. Further evaluation with prompt non-emergent ultrasound is recommended to characterize. (Reference: Layton) References: Layton et al. Management of Incidental Adnexal Findings on CT and MRI: A White Paper of the ACR Incidental Findings Committee, J Am Polly Radiol. 2019;17(2):248-254.
[2023-06-26 02:51] LABS: Basophils # 0.1 K/mm3 (0-0.2); Basophils % 0.8 % (0.1-2.0); Eosinophils # 0.2 K/mm3 (0.0-0.4); Eosinophils % 2.8 % (0.1-12.0); Hematocrit 41.9 % (37.0-47.0); Hemoglobin 14.1 g/dL (12.2-16.2); Lymphocytes # 2.8 K/mm3 (0.7-4.5); Lymphocytes % 33.6 % (10-50); Mean Corpuscular HGB Conc 33.6 g/dL (31.8-35.4); Mean Corpuscular Hemoglobin 30.7 pg (27.0-31.2); Mean Corpuscular Volume 91.2 fl (81-99); Mean Platelet Volume 8.5 fl (7.4-10.4); Monocytes # 0.5 K/mm3 (0.1-1.0); Monocytes % 6.5 % (1.7-9.3); Neutrophils # 4.6 K/mm3 (1.8-7.8); Neutrophils % 56.3 % (37.0-80.0); Platelet Count 183 K/mm3 (142-424); Red Cell Distribution Width 12.9 % (11.5-17.5); White Blood Count 8.2 K/mm3 (4.8-10.8)
[2023-06-26 02:55] LABS: Chloride 107 mmol/L (98-107)
[2023-06-26] MEDS: ACETAMINOPHEN 500MG TAB 1000 MG PO (02:55)
[2023-06-26 02:56] LABS: Potassium 4.1 mmoL/L (3.5-5.1); Sodium 140 mmol/L (136-145)
[2023-06-26] MEDS: KETOROLAC 30MG/ML VIAL 30 MG IV (02:56)
[2023-06-26] MEDS: ONDANSETRON 4MG/2ML VIAL 4 MG IV (02:56)
[2023-06-26 02:58] LABS: Alanine Aminotransferase 30 U/L (12-78); Alkaline Phosphatase 98 U/L (38-126); Anion Gap 12.1 mEq/L (5-15); Aspartate Amino Transferase 30 U/L (14-36); Bilirubin,Total 0.4 mg/dl (0.2-1.3); Blood Urea Nitrogen 17 mg/dl (7-17); Carbon Dioxide 25 mmol/L (22.0-30.0); Creatinine Clearance Estimated 86 mL/min (50-200); Estimated Glomerular Filt Rate 65 ml/min (>60); GFR (African American) 78 ML/MIN (>60)
[2023-06-26 02:59] LABS: Albumin Level 4.1 g/dl (3.5-5.0); Albumin/Globulin Ratio 1.3 (1.1-1.8); Calcium 9.1 mg/dl (8.4-10.2); Globulin 3.1 g/dL (1.3-3.2); Glucose 119 mg/dl (74-100); Total Protein,Serum 7.2 g/dl (6.3-8.2)
[2023-06-26 03:07] LABS: Lipase 3370 U/L (23-300)
--- NOTE | 2023-06-26 03:07 | PC.NURSE ---
Yahaira from the lab called with a critical lab value for the pt. Lipase is [phone]. Dr Dee and LYNNE aware. CR
--- NOTE | 2023-06-26 03:09 | ED_ITS ---
Discharge Plan Disposition Patient Disposition: Home, Self-Care Prescriptions Prescriptions: New ondansetron HCl 4 mg tablet 4 mg PO Q8H PRN (Reason: nausea and vomiting) 5 Days Qty: 30 0RF oxycodone 5 mg tablet 5 mg PO Q8H PRN (Reason: pain) Qty: 12 0RF No Action atorvastatin 10 mg tablet See Rx Instructions .ROUTE .COMPLEX Qty: 30 2RF Dose Instruction: TAKE ONE TABLET BY MOUTH EVERY NIGHT AT BEDTIME Rx Instructions: TAKE ONE TABLET BY MOUTH EVERY NIGHT AT BEDTIME famotidine 20 mg tablet See Rx Instructions .ROUTE .COMPLEX Qty: 30 1RF Dose Instruction: TAKE ONE TABLET BY MOUTH ONCE A DAY Rx Instructions: TAKE ONE TABLET BY MOUTH ONCE A DAY ergocalciferol (vitamin D2) 1,250 mcg (50,000 unit) capsule See Rx Instructions .ROUTE .COMPLEX Qty: 4 0RF Dose Instruction: TAKE ONE CAPSULE BY MOUTH EVERY WEEK Rx Instructions: TAKE ONE CAPSULE BY MOUTH EVERY WEEK Referrals Follow up/Referrals: Urbano Gutiérrez, [Primary Care Provider] - See instructions Activity Restrictions/Add. Instructions Additional Instructions/Restrictions: Your CT scan did not show any abnormalities in the gallbladder or pancreas. The labs show that you have pancreatitis. There is not a clear reason as to why. Please take Tylenol and ibuprofen as needed for pain. Please take Zofran as needed for nausea and vomiting. Please take oxycodone as needed for severe pain. If you develop persistent or controllable symptoms, if you develop fever, please return immediately to the emergency department as this could be carey ggestive of an infection. Please follow-up with your primary care provider next week. Clinical Impressions Clinical Impression: Idiopathic acute pancreatitis Qualifiers: Acute pancreatitis complication: no infection or necrosis Qualified Code(s): K85.00 - Idiopathic acute pancreatitis without necrosis or infection Ovarian cyst Qualifiers: Laterality: left Qualified Code(s): N83.202 - Unspecified ovarian cyst, left side Instructions Patient Instructions: DI for Acute Abdominal Pain Discharge ED Provider: Leif Dee Adult [facility] General Chief complaint: Abdominal Pain Stated complaint: right side/abd pain Time Seen by Provider: 06/26/23 02:25 Mode of Arrival: Ambulatory Source of Information: Patient Limitations: No Limitations Description of Symptoms (Recalled from ER Triage Doc. by RN): Patient presents with chief complaint of right upper quadrant pain rated 7/10 that began at approximately 9pm after eating, described as stabbing. Patient reports she has had similar pains since Thursday, when she was seen at urgent care, at that time she was also experiencing diarrhea, which she no longer has. Patient states that urgent care seemed to think the cause was viral, but also suggested if the pain continued to return that it may be her gallbladder. Patient denies nause, vomiting, dysuria, fever at this time. 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 She denies any vomiting. She had some vomiting when the pain started. It has been intermittent and goes away completely at times. After eating at 9 PM, approximately 6 hours ago, pain has been more persistent/severe. Denies any fevers. Reports pain is sometimes epigastric. She denies any history of gallstones. She denies any history of pancreatitis, denies any alcohol use. Related Data Previous Rx's Medication Instructions Recorded atorvastatin 10 mg tablet See Rx Instructions .Route 05/15/23 .COMPLEX #30 tabs famotidine 20 mg tablet See Rx Instructions .Route 06/02/23 .COMPLEX #30 tabs ergocalciferol (vitamin D2) 1,250 See Rx Instructions .Route 06/08/23 mcg (50,000 unit) capsule .COMPLEX #4 caps ondansetron HCl 4 mg tablet 4 mg PO Q8H PRN nausea and 06/26/23 vomiting 5 days #30 tabs oxycodone 5 mg tablet 5 mg PO Q8H PRN pain #12 tabs 06/26/23 Allergies Allergy/AdvReac Type Severity Reaction Status Date / Time No Known Allergies Allergy Verified 06/26/23 02:40 [facility] Disclaimer: The information contained in this section may have been updated after the patient was seen, as this information can be updated by other users. Medical History (Updated 06/26/23 @ 04:38 by Leif Dee MD) High cholesterol History of malignant neoplasm of kidney Vitamin D deficiency Surgical History (Updated 06/26/23 @ 02:39 by Nancie Tejeda RN) H/O right nephrectomy Social History Smoking Status: Never smoker alcohol intake: never substance use type: denies use current occupational status: employed Travel in the last 8 weeks: None ROS Obtained: Yes All systems reviewed & no additional complaints except as documented Physical Exam General General appearance: alert and in no apparent distress Head Head exam: atraumatic and normocephalic Eye Eye exam: Present normal appearance, PERRL and EOMI ENT ENT exam: Present normal oropharynx and normal external ear exam Neck Neck exam: Present normal inspection and full ROM Chest Chest inspection: Present normal inspection and symmetric chest wall rise; Absent tenderness Respiratory Respiratory exam: Present normal lung sounds bilaterally; Absent respiratory distress Cardiovascular Cardiovascular exam: Present regular rate and normal rhythm Abdominal Exam Abdominal exam: Present soft and tenderness (Right upper quadrant, epigastric); Absent distention or guarding Extremities Exam Extremities exam: Present normal inspection; Absent edema or joint swelling Back Exam Back exam: Present normal inspection; Absent tenderness Neurological Exam Neurological exam: Present alert and oriented X3; Absent motor sensory deficit Psychiatric Psychiatric exam: Present normal affect and normal mood Skin Skin exam: Present warm, dry and normal color Lymphatic Lymphatic Findings: no adenopathy Medical Decision Making Medical Records Medical records reviewed: Yes I reviewed the patient's medical records. Parminder Inquiry Pt receiving controlled substance: No Parminder was queried for this patient: No Vital Signs: 06/26/23 02:24 06/26/23 02:30 06/26/23 04:00 Temperature 97.7 F Temperature Source Oral Pulse Rate 70 60 Pulse Rate [Left Radial] 70 Respiratory Rate 19 20 18 Blood Pressure 189/90 H 148/78 H Blood Pressure [Right Arm] 189/90 H Blood Pressure Mean 106 114 Blood Pressure Mean [Right Arm] 123 Blood Pressure Source [Right Arm] Automatic Cuff Blood Pressure Position [Right Arm] Sitting 02 Sat by Pulse Oximetry 97 98 97 Oxygen Delivery Method Room Air Room Air Room Air Lab Data Lab results reviewed: Yes I reviewed the patient's lab results. Lab Results 06/26/23 02:45: WBC 8.2, RBC 4.60, Hgb 14.1, Hct 41.9, MCV 91.2, MCH 30.7, MCHC 33.6, RDW 12.9, Plt Count 183, MPV 8.5, Neut % (Auto) 56.3, Lymph % (Auto) 33.6, Fannin % (Auto) 6.5, Eos % (Auto) 2.8, Baso % (Auto) 0.8, Neut # (Auto) 4.6, Lymph # (Auto) 2.8, Fannin # (Auto) 0.5, Eos # (Auto) 0.2, Baso # (Auto) 0.1, Sodium 140, Potassium 4.1, Chloride 107, Carbon Dioxide 25, Anion Gap 12.1, BUN 17, Creatinine 0.90, Estimated Creat Clear 86, Estimated GFR 65, Est GFR ( Amer) 78, Glucose 119 H, Calcium 9.1, Total Bilirubin 0.4, AST 30, ALT 30, Alkaline Phosphatase 98, Total Protein 7.2, Albumin 4.1, Globulin 3.1, Albumin/Globulin Ratio 1.3, Lipase 3370 H 06/26/23 02:45 06/26/23 02:45 Orders (Tests/Meds): ED MEDICATIONS Generic Name Dose Route Start Last Admin Trade Name Freq PRN Reason Stop Dose Admin Sodium Chloride 10 ml 06/26/23 03:12 06/26/23 03:13 Sodium Chloride 0.9% 10ml Syr (Rad Only) IV 07/26/23 03:11 10 ml NEEDED PRN Administration Maintain IV Site Discontinued Medications Generic Name Dose Route Start Last Admin Trade Name Freq PRN Reason Stop Dose Admin Acetaminophen 1,000 mg 06/26/23 02:44 06/26/23 02:55 Acetaminophen 500mg Tab PO 06/26/23 02:45 1,000 mg ONCE ONE Administration Iopamidol 75 ml 06/26/23 03:12 06/26/23 03:12 Iopamidol-370 (76%);100ml Bottle IV 06/26/23 03:13 75 ml ONCE ONE Administration Ketorolac Tromethamine 30 mg 06/26/23 02:44 06/26/23 02:56 Ketorolac 30mg/Ml Vial IV 06/26/23 02:45 30 mg ONCE ONE Administration Ondansetron HCl 4 mg 06/26/23 02:44 06/26/23 02:56 Ondansetron 4mg/2ml Vial IV 06/26/23 02:45 4 mg ONCE ONE Administration ORDERS Category Date Time Status CT abdomen pelvis w con Stat Cat Scan 06/26/23 02:44 Completed CBC w/Auto Diff [Complete Blood Count Auto Diff] Stat Lab 06/26/23 02:45 Completed CMP [Comprehensive Metabolic Panel] Stat Lab 06/26/23 02:45 Completed Lipase Stat Lab 06/26/23 02:45 Completed Medical Decision Narrative: 57-year-old female, 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 History was obtained via conversation with patient. On arrival, patient is [afebrile, hemodynamically stable, satting appropriately, alert, oriented x4, GCS 15], moving all extremities spontaneously. Full physical exam performed and significant for mild to moderate right upper quadrant and epigastric tenderness. Differential includes but is not limited to cholecystitis, choledocholithiasis, pancreatitis, cholangitis, GERD, peptic ulcer disease. Patient was given Tylenol, Toradol, Zofran for symptomatic management and correction of underlying abnormalities. Workup initiated including CBC CMP lipase CT abdomen pelvis with IV contrast. Bedside ultrasound of the right upper quadrant was performed, but views were nondiagnostic and were not saved to the treatment record. On re-evaluation, patient [remains afebrile, HD stable.] Laboratory workup independently interpreted by me and significant for markedly elevated lipase at 3370, otherwise completely normal labs.. Imaging independently interpreted by me and significant for no evidence of gallstones, cholecystitis, pancreatic inflammation, or other pathology to explain pain. Does show a large left adnexal simple cyst. See radiology read for full review of final results. I had extensive discussion with patient regarding her history. She reports that she never drinks alcohol, she is not on any new medications, she has no a history of severe hypertriglyceridemia, she has no history of gallstones or other pathology. Her pain is improved and quite tolerable now, rating it a 3 out of 10. She continues to have no nausea or vomiting. Overall, the presentation for acute pancreatitis is unusual, and the underlying etiology of pancreatitis is unclear at this point. It is possible that the patient is having gallstone pancreatitis, but given normal LFTs and bilirubin, normal CT imaging without stones, this is deemed unlikely at this time. Utilizing shared decision-making, we elected to have the patient follow-up outpatient with her primary care doctor for reassessment. She is instructed to eat bland diet over the next few days. She was instructed to take Tylenol and ibuprofen as needed for pain. I also prescribed a short course of oxycodone and Zofran as needed for severe symptoms. I had extensive discussion with her regarding return precautions including for uncontrolled pain,, nausea vomiting, development of any fever. Patient was agreeable to plan and discharged in stable condition. She will also follow-up to have an outpatient ultrasound of the adnexal cyst. Procedures Risk/Benefits of Procedure(s) Were Explained: Yes Critical Care Critical Care Time Critical Care Time: No
[2023-06-26] MEDS: IOPAMIDOL-370 (76%);100ML BOTTLE 75 ML IV (03:12)
[2023-06-26] MEDS: SODIUM CHLORIDE 0.9% 10ML SYR (RAD ONLY) 10 ML IV (03:13)
[2023-06-26 04:00] VITALS: BP 148/78; PULSE 60; RESP 18; O2SAT 97
[2023-06-26 04:38] VITALS: BP 148/78; PULSE 60; RESP 14; TEMP 36.7; O2SAT 98
== END 2023-06-26 04:43 | disposition home or self-care (01) ==
PROVIDERS: Emergency Provider Emergency Medicine; PCP Internal Medicine
DX: K85.00 Idiopathic acute pancreatitis without necrosis or infection (principal); N83.202 Unspecified ovarian cyst, left side; R10.11 Right upper quadrant pain; R11.10 Vomiting, unspecified; R10.13 Epigastric pain; E78.00 Pure hypercholesterolemia, unspecified; Z85.528 Personal history of other malignant neoplasm of kidney
CPT/HCPCS: 74177; 80053; 83690; 85025; 96374; 96375; 99285; J2405; Q9967

== ENCOUNTER 2023-07-21 15:41 | Outpatient (CLI) | payer BC, SELFPAY ==
--- NOTE | 2023-07-21 15:41 | US_ITS ---
PROCEDURE: US TRANSVAGINAL CLINICAL INDICATION: adnexal cyst COMPARISON: CT ABDOMEN PELVIS W CON from 06/26/2023 FINDINGS: Transvaginal and transabdominal sonographic images of the pelvis were obtained. UTERUS: 7.1cm x 4.1cmx 3.0cm anteverted with a combined endometrial thickness of 6.2mm. Small amount of fluid within the cervix. LEFT OVARY: 4.8 cmx5.8 cmx5.7cm with a volume of 82.2ml. The left ovary has a benign simple cyst measuring 4.8 cm x 5.4 cm x 5.2 cm. This is similar in size compared to her CT scan on June 26, 2023. RIGHT OVARY: 3.3cmx 2.7 cmx2.0cm with a volume of 9.4ml. Within the right ovary is a benign simple cyst measuring 1.9 cm x 1.6 cm x 1.7 cm. Both ovaries are seen. Doppler flow to both ovaries are seen. There is no fluid in the cul-de-sac. IMPRESSION: 1. Anteverted uterus normal in shape and size. The endometrium is thin. 2. Right ovary is seen and is normal in shape and size. There is a benign simple cyst measuring 1.9 cm. 3. The left ovary consists almost entirely of a benign simple cyst measuring 5.4 cm in its largest dimension. This has not appreciably changed in size since the CT scan done June 26, 2023. 4. SRU consensus recommends follow-up ultrasound in 3-6 months. ORads suggested two-month ultrasound follow-up. 5. No fluid in the cul-de-sac. Dictated by: Nik Hanley MD 07/22/2023 13:47 Nik Hanley MD in [place] 07/22/2023 13:47
== END 2023-07-21 23:59 ==
LOC: RAD 15:41
PROVIDERS: PCP Internal Medicine; Visit Provider Family Medicine
DX: N94.89 Other specified conditions associated with female genital organs and menstrual cycle (principal)
CPT/HCPCS: 76830

== ENCOUNTER 2023-09-21 13:29 | Outpatient (CLI) | payer BC, SELFPAY ==
--- NOTE | 2023-09-21 13:30 | MM_ITS ---
PROCEDURE INFORMATION: Exam: MG Right Diagnostic Breast Tomosynthesis Exam date and time: 09/21/2023 1:23 PM Age: 57 years old Clinical indication: Short-term radiographic followup; Right breast; mass TECHNIQUE: Imaging protocol: Right Diagnostic tomosynthesis and 2D mammography including computer-aided detection (CAD) when performed. Unilateral or bilateral exam. COMPARISON: 1. MG MM DIG SCREENING MAMM BI W/CAD 02/19/2023 7:59 AM 2. MG DMSB DIG MAMM-SCREEN ALLAN W/CAD 11/27/2016 4:33 PM FINDINGS: MAMMOGRAPHY: Breast composition: There are scattered areas of fibroglandular density. Breast mammogram findings: There is no stellate mass, architectural distortion or suspicious microcalcifications to suggest malignancy. Stable 0.6 cm mass best seen on tomographic images in the middle third of the right upper outer quadrant. No skin thickening or axillary adenopathy. IMPRESSION: Stable probably benign subcentimeter right breast mass compared to prior mammogram dated 02/19/2023. A six-month follow-up diagnostic bilateral mammogram is recommended for continued close surveillance of the right sided mass as well as part of an annual screening schedule ASSESSMENT: BI-RADS Category 3: Probably benign.
== END 2023-09-21 23:59 | disposition home or self-care (01) ==
LOC: RAD 13:30
PROVIDERS: PCP Internal Medicine; Visit Provider Family Medicine
DX: R92.8 Other abnormal and inconclusive findings on diagnostic imaging of breast (principal); N63.10 Unspecified lump in the right breast, unspecified quadrant
CPT/HCPCS: 77062; 77066; G0279

== ENCOUNTER 2023-10-22 12:55 | Outpatient (CLI) | payer BC, SELFPAY ==
--- NOTE | 2023-10-22 12:56 | US_ITS ---
PROCEDURE: US TRANSVAGINAL CLINICAL INDICATION: following ovarian cyst COMPARISON: US US TRANSVAGINAL from 07/21/2023 FINDINGS: Transvaginal and transabdominal sonographic images of the pelvis were obtained. UTERUS: 6.9 cm x 4.1cmx 3.2cm anteverted with a combined endometrial thickness of 6.6mm. There is a small amount of fluid in the cervix. LEFT OVARY: 5.5 cmx5.5cmx5.6cm with a volume of 87.9ml. There is a follicle measuring 4.5 cm x 4.5 cm x 5.4 cm. It is similar in size to her last ultrasound from July 21, 2023. RIGHT OVARY: 3.9 cmx 2.9cmx2.0cm with a volume of 11.8ml. The right ovary is seen transabdominally. There is a small follicle measuring 1.9 cm x 1.7 cm x 1.9 cm. This is similar in size and was seen on a previous exam. Both ovaries are seen and appear normal. Doppler flow to both ovaries are seen. There is no fluid in the cul-de-sac. IMPRESSION: 1. Anteverted uterus normal in shape and size. There is a small amount of fluid in the cervix. The endometrium measures 6.6 mm. 2. The left ovarian cyst is similar in size and remains 5.4 cm. 3. Right ovary is seen and appears normal. There is a small follicle in the right ovary measuring 1.9 cm. This was seen on her previous exam and remains similar in size. 4. No fluid in the cul-de-sac. Dictated by: Nik Hanley MD 10/22/2023 14:54 Nik Hanley MD in [facility] 10/22/2023 14:54
== END 2023-10-22 23:59 | disposition home or self-care (01) ==
LOC: RAD 12:56
PROVIDERS: Visit Provider Obstetrics & Gynecology
DX: N83.209 Unspecified ovarian cyst, unspecified side (principal)
CPT/HCPCS: 76830

== ENCOUNTER 2024-01-18 10:21 | Emergency (ER) | payer BC, SELFPAY ==
[2024-01-18] VITALS (8 sets, daily range): BP systolic 122–149; BP diastolic 60–85; PULSE 52–76; RESP 10–19; TEMP 36.4; O2SAT 96–99; BMI 24.2; BMI 31.6
--- NOTE | 2024-01-18 10:23 | ECG_ITS ---
APPROVED REPORT Exam: Resting ECG HR:76 bpm ECG Measurements Heart Rate 76 AXES DE 157 P 64 QRSd 92 QRS 63 QT 377 T 68 QTc 408 Conclusion SINUS RHYTHM NORMAL ECG Electronically signed by : PHILOMENA SEO, 01/19/2024 14:13:09
--- NOTE | 2024-01-18 10:28 | XR_ITS ---
FINAL REPORT TECHNIQUE: Chest PA & Lateral CLINICAL HISTORY: Chest pain COMPARISON: 03/25/2022 FINDINGS: 2 views of the chest were performed. The heart size is normal. The mediastinum is within normal limits. There is no acute cardiopulmonary process. There are no pleural effusions. There is no pneumothorax. The bony thorax appears intact. IMPRESSION: No acute cardiopulmonary process. Reviewed, Interpreted and Dictated by Fabian De La Vega MD Transcribed by Opal Beaulieu Authenticated and [facility]
[2024-01-18 10:36] LABS: Basophils # 0.1 K/mm3 (0-0.2); Basophils % 1.1 % (0.1-2.0); Eosinophils # 0.2 K/mm3 (0.0-0.4); Eosinophils % 2.6 % (0.1-12.0); Hematocrit 44.5 % (37.0-47.0); Lymphocytes # 2.3 K/mm3 (0.7-4.5); Lymphocytes % 27.3 % (10-50); Mean Corpuscular HGB Conc 31.5 g/dL (31.8-35.4); Mean Corpuscular Hemoglobin 30.4 pg (27.0-31.2); Mean Corpuscular Volume 96.5 fl (81-99); Mean Platelet Volume 8.7 fl (7.4-10.4); Monocytes # 0.4 K/mm3 (0.1-1.0); Monocytes % 5.3 % (1.7-9.3); Neutrophils # 5.3 K/mm3 (1.8-7.8); Neutrophils % 63.6 % (37.0-80.0); Platelet Count 227 K/mm3 (142-424); Red Blood Count 4.61 M/mm3 (4.20-5.40); Red Cell Distribution Width 13.7 % (11.5-17.5); White Blood Count 8.3 K/mm3 (4.8-10.8)
--- NOTE | 2024-01-18 10:37 | PC.NURSE ---
Pt gone to RAD via wheelchair
--- NOTE | 2024-01-18 10:41 | PC.NURSE ---
Pt back in room from Rad
[2024-01-18 10:50] LABS: Alanine Aminotransferase 24 U/L (12-78); Albumin Level 4.2 g/dl (3.5-5.0); Albumin/Globulin Ratio 1.4 (1.1-1.8); Alkaline Phosphatase 76 U/L (38-126); Anion Gap 7.9 mEq/L (5-15); Aspartate Amino Transferase 26 U/L (14-36); Bilirubin,Total 0.5 mg/dl (0.2-1.3); Blood Urea Nitrogen 13 mg/dl (7-17); Calcium 8.8 mg/dl (8.4-10.2); Carbon Dioxide 29 mmol/L (22.0-30.0); Chloride 108 mmol/L (98-107); Creatinine Clearance Estimated 93 mL/min (50-200); Estimated Glomerular Filt Rate 64 ml/min (>60); GFR (African American) 78 ML/MIN (>60); Globulin 3.1 g/dL (1.3-3.2); Glucose 135 mg/dl (74-100); Potassium 3.9 mmoL/L (3.5-5.1); Sodium 141 mmol/L (136-145); Total Protein,Serum 7.3 g/dl (6.3-8.2)
[2024-01-18 10:56] LABS: Troponin I < 0.01 ng/ml (0.00-0.034)
--- NOTE | 2024-01-18 11:05 | ED_ITS ---
Discharge Plan Disposition Patient Disposition: Home, Self-Care Prescriptions Prescriptions: No Action atorvastatin 10 mg tablet See Rx Instructions .ROUTE .COMPLEX Qty: 90 4RF Dose Instruction: TAKE ONE TABLET BY MOUTH EVERY NIGHT AT BEDTIME Rx Instructions: TAKE ONE TABLET BY MOUTH EVERY NIGHT AT BEDTIME ergocalciferol (vitamin D2) 1,250 mcg (50,000 unit) capsule See Rx Instructions .ROUTE .COMPLEX Qty: 4 5RF Dose Instruction: TAKE ONE CAPSULE BY MOUTH EVERY WEEK Rx Instructions: TAKE ONE CAPSULE BY MOUTH EVERY WEEK famotidine 20 mg tablet See Rx Instructions .ROUTE .COMPLEX Qty: 90 5RF Dose Instruction: TAKE ONE TABLET BY MOUTH ONCE A DAY Rx Instructions: TAKE ONE TABLET BY MOUTH ONCE A DAY Referrals Follow up/Referrals: Irina Rouse APRN [Primary Care Provider] - See instructions Miky Covington MD [Staff Physician] - See instructions Activity Restrictions/Add. Instructions Additional Instructions/Restrictions: No definitive acute cardiopulmonary emergency identified today please follow-up outpatient with Dr. Covington our pediatric hospitalist as previously instructed. Clinical Impressions Clinical Impression: Atypical chest pain Print Language Print Language: Maltese Discharge ED Provider: Sanjana Melendez [facility] General Chief Complaint: Chest Pain Stated Complaint: Chest Pain Time Seen by Provider: 01/18/24 10:37 Mode of Arrival: Ambulatory Source of Information: Patient and Relative Limitations: No Limitations Description of Symptoms (Recalled from ER Triage Doc. by RN): Pt. states she began having chest pain that went into her left arm around 920 am. She states it feels like pressure but occasionally has periods of sharp pain into her arm. History of Present Illness HPI narrative: 58-year-old female presents today with left superior lateral chest discomfort radiating to her left arm. Time of onset about 1 hour prior. Chest pain is resolved cells and discomfort left arm. Denies any history of any neck discomfort or cervical abnormalities or cervical radiculopathy. No exertional aspect of there is no dyspnea or diaphoresis or nausea. This is not positional no pleuritic component as well. Patient denies any history of any coronary artery disease has had a stress test many years ago but has not had any recently or left heart cath. Related Data Previous Rx's ?Medication ?Instructions ?Recorded atorvastatin 10 mg tablet See Rx Instructions .Route 10/29/23 .COMPLEX #90 tabs ergocalciferol (vitamin D2) 1,250 See Rx Instructions .Route 10/29/23 mcg (50,000 unit) capsule .COMPLEX #4 caps famotidine 20 mg tablet See Rx Instructions .Route 10/29/23 .COMPLEX #90 tabs Allergies Allergy/AdvReac Type Severity Reaction Status Date / Time No Known Allergies Allergy Verified 01/18/24 10:34 [facility] Disclaimer: The information contained in this section may have been updated after the patient was seen, as this information can be updated by other users. Medical History (Updated 01/18/24 @ 11:03 by Sanjana Melendez MD) Epigastric abdominal pain Open fracture of right thumb Cervical cancer screening Idiopathic acute pancreatitis Gastroenteritis Chest pain High cholesterol History of malignant neoplasm of kidney Vitamin D deficiency Cellulitis of arm, left Abrasion, multiple sites Contusion of arm, right Fall Avulsion fracture of right thumb Allergic conjunctivitis Surgical History (Updated 01/18/24 @ 10:33 by Ирина Styles RN) Previous section H/O right nephrectomy Family History Other No significant family history Social History (Updated 01/18/24 @ 10:34 by Ирина Styles RN) Smoking Status: Never smoker alcohol intake: never substance use type: denies use current occupational status: employed Travel in the last 8 weeks: None ROS Obtained: Yes All systems reviewed & no additional complaints except as documented Physical Exam General General appearance: alert Respiratory Respiratory exam: Present normal lung sounds bilaterally Cardiovascular Cardiovascular exam: Present regular rate and normal rhythm Abdominal Exam Abdominal exam: Present soft; Absent distention or tenderness Neurological Exam Neurological exam: Present alert and oriented X3 HEART Score HEART Score HEART Score assessment performed?: Yes History (anamnesis): Slightly suspicious ECG: Normal Age: 45-65 years Risk factors: No known risk factors Troponin: </= normal limit HEART Score: 1 Critical Care Critical Care Time Critical Care Time: No Medical Decision Making Parminder Inquiry Pt receiving controlled substance: No Vital Signs Vital Signs: 01/18/24 10:24 01/18/24 10:28 01/18/24 11:00 Temperature 97.6 F Temperature Source Oral Pulse Rate 76 72 Pulse Rate [Right Brachial] 72 Respiratory Rate 16 19 Blood Pressure 145/69 H Blood Pressure [Right Arm] 131/77 Blood Pressure Mean [Right Arm] 95 Blood Pressure Source [Right Arm] Automatic Cuff Blood Pressure Position [Right Arm] Sitting 02 Sat by Pulse Oximetry 99 97 Oxygen Delivery Method Room Air Room Air 01/18/24 11:30 01/18/24 12:00 01/18/24 12:30 Temperature Temperature Source Pulse Rate 65 56 L 55 L Pulse Rate [Right Brachial] Respiratory Rate 10 L 10 L 12 Blood Pressure 122/60 141/71 H 136/72 Blood Pressure [Right Arm] Blood Pressure Mean [Right Arm] Blood Pressure Source [Right Arm] Blood Pressure Position [Right Arm] 02 Sat by Pulse Oximetry 96 99 96 Oxygen Delivery Method Room Air Room Air Room Air 01/18/24 13:00 Temperature Temperature Source Pulse Rate 52 L Pulse Rate [Right Brachial] Respiratory Rate 13 Blood Pressure 149/76 H Blood Pressure [Right Arm] Blood Pressure Mean [Right Arm] Blood Pressure Source [Right Arm] Blood Pressure Position [Right Arm] 02 Sat by Pulse Oximetry 97 Oxygen Delivery Method Room Air Lab Data Lab results reviewed: Yes I reviewed the patient's lab results. Labs: Lab Results 01/18/24 10:29: WBC 8.3, RBC 4.61, Hgb 14.0, Hct 44.5, MCV 96.5, MCH 30.4, MCHC 31.5 L, RDW 13.7, Plt Count 227, MPV 8.7, Neut % (Auto) 63.6, Lymph % (Auto) 27.3, [place] % (Auto) 5.3, Eos % (Auto) 2.6, Baso % (Auto) 1.1, Neut # (Auto) 5.3, Lymph # (Auto) 2.3, [place] # (Auto) 0.4, Eos # (Auto) 0.2, Baso # (Auto) 0.1, Sodium 141, Potassium 3.9, Chloride 108 H, Carbon Dioxide 29, Anion Gap 7.9, BUN 13, Creatinine 0.90, Estimated Creat Clear 93, Estimated GFR 64, Est GFR ( Amer) 78, Glucose 135 H, Calcium 8.8, Total Bilirubin 0.5, AST 26, ALT 24, Alkaline Phosphatase 76, Troponin I < 0.01, Total Protein 7.3, Albumin 4.2, Globulin 3.1, Albumin/Globulin Ratio 1.4 01/18/24 11:03: D-Dimer 0.34 01/18/24 13:03: Troponin I < 0.01 01/18/24 10:29 01/18/24 10:29 Response Orders (Tests/Meds): ED MEDICATIONS Generic Name Dose Route Start Last Admin Trade Name Vernon PRN Reason Stop Dose Admin Sodium Chloride 10 ml 01/18/24 10:28 Sodium Chloride 0.9% 10ml Flush Syringe IV 02/17/24 10:27 NEEDED PRN Maintain IV Site Discontinued Medications Generic Name Dose Route Start Last Admin Trade Name Frejacky PRN Reason Stop Dose Admin Aspirin 324 mg 01/18/24 11:04 01/18/24 11:13 Aspirin 81mg Chewable Tablet PO 01/18/24 11:05 324 mg ONCE ONE Administration ORDERS Category Date Time Status CXR 2 view (NOT portable) [XR chest 2V] Stat Exams 01/18/24 10:28 Completed Complete Blood Count Auto Diff Stat Lab 01/18/24 10:29 Completed Comprehensive Metabolic Panel Stat Lab 01/18/24 10:29 Completed D-Dimer Stat Lab 01/18/24 11:03 Completed Troponin I Q3H Lab 01/18/24 13:03 Completed Troponin I Q3H Lab 01/18/24 16:30 Ordered Troponin I Stat Lab 01/18/24 10:29 Completed 12-lead EKG Request [ECG Request] Stat Y 01/18/24 10:26 Ordered ECG Data Tracing #1: Attestation: I reviewed this ECG and interpreted as documented below: ECG Narrative: Ventricular to 76 normal sinus rhythm no acute ischemic changes noted normal axis no significant duction abnormality MDM Narrative Medical Decision Narrative: 58-year-old presenting today with chest pain. EKG is unremarkable. Given her age cannot use PERC criteria to rule out pulmonary embolism will obtain a D- dimer needle is 1.0 was rule out criteria with years criteria. First troponin is negative she will be placed in ED observation status for second troponin to rule out acute coronary syndrome. Aspirin has been administered. Patient is very well-appearing assuming this workup is negative she will be stable for outpatient follow-up and evaluation with cardiology. It is possible her symptoms are secondary to cervical radiculopathy but she does not give a definitive history and physical to suggest that. Reassessment 153 serial troponins negative. D-dimer less than my threshold for ordering a CT PE based on years criteria. Labs otherwise unremarkable chest x- ray was unremarkable patient stable for outpatient follow-up and will follow-up with cardiology to discuss possible noninvasive cardiac imaging or further evaluation of possible heart related conditions.
[2024-01-18] MEDS: ASPIRIN 81MG CHEWABLE TABLET 324 MG PO (11:13)
[2024-01-18 11:20] LABS: D-Dimer 0.34 ug/mL (0.0-0.5)
--- NOTE | 2024-01-18 11:32 | PC.NURSE ---
Rounded on pt. Updated pt about when we were able to drawn next troponin. Pt voiced understanding. No other needs voiced, and call light remains within reach.
--- NOTE | 2024-01-18 13:04 | PC.NURSE ---
Second trop collected and sent to LAB. PT ambulatory to bathroom. No needs voiced and call light remains within reach.
[2024-01-18 13:38] LABS: Troponin I < 0.01 ng/ml (0.00-0.034)
--- NOTE | 2024-01-18 13:51 | PC.NURSE ---
Dr. Melendez and PA student at bedside
== END 2024-01-18 13:58 | disposition home or self-care (01) ==
PROVIDERS: Emergency Provider Student in an Organized Health Care Education/Training Program; PCP Family Medicine
DX: R07.89 Other chest pain (principal)
CPT/HCPCS: 71046; 80053; 84484; 85025; 85378; 93005; 99284

== ENCOUNTER 2024-03-24 12:41 | Outpatient (CLI) | payer BC, SELFPAY ==
--- NOTE | 2024-03-24 12:42 | MM_ITS ---
PROCEDURE INFORMATION: Exam: MG Right Diagnostic Breast Tomosynthesis Exam date and time: 03/24/2024 12:51 PM Age: 58 years old Clinical indication: Short-term radiographic followup; Right breast; Additional info: 6 mth f/u RT breast nodule TECHNIQUE: Imaging protocol: Right Diagnostic tomosynthesis and 2D mammography including computer-aided detection (CAD) when performed. Unilateral or bilateral exam. COMPARISON: 1. MG MM DIG MAMM BI DX W/CAD 09/21/2023 1:23 PM 2. MG MM DIG SCREENING MAMM BI W/CAD 02/19/2023 7:59 AM FINDINGS: MAMMOGRAPHY: Breast composition: There are scattered areas of fibroglandular density. Breast mammogram findings: Stable 0.6 cm mass in the middle 3rd of the right upper outer quadrant, with no significant change since 02/19/2023. No suspicious distortion, calcifications, or other abnormality is seen. IMPRESSION: 1. Mass in the right breast upper outer quadrant is stable since 02/19/2023. Six-month follow-up with mammography is recommended. 2. Per our records, the patient's last bilateral mammogram was in January 2023. If no additional screening of the contralateral left breast has been performed since then, the patient would be due for a left breast screening at this time. ASSESSMENT: BI-RADS Category 0: Incomplete- Need Additional Imaging Evaluation.
== END 2024-03-24 23:59 | disposition home or self-care (01) ==
LOC: RAD 12:42
PROVIDERS: PCP Family Medicine; Visit Provider Family Medicine
DX: R92.8 Other abnormal and inconclusive findings on diagnostic imaging of breast (principal); N63.11 Unspecified lump in the right breast, upper outer quadrant
CPT/HCPCS: 77061; 77065; G0279

== ENCOUNTER 2024-04-19 12:43 | Outpatient (CLI) | payer BC, SELFPAY ==
--- NOTE | 2024-04-19 12:43 | US_ITS ---
PROCEDURE: US TRANSVAGINAL CLINICAL INDICATION: thickened edometrium, Left ovarian cyst COMPARISON: US US TRANSVAGINAL from 07/21/2023 FINDINGS: Transvaginal sonographic images of the pelvis were obtained. UTERUS: 7.3cm x 5.2cmx 3.6 cm anteverted with a combined endometrial thickness of 8.8mm. The endometrium is difficult to visualize. There appears to be some thickening of the endocervical canal LEFT OVARY: 6.3cmx5.4cmx6.1cm with a volume of 109.1ml. There is a cyst in the left ovary measuring 5.9 cm x 4.0 cm x 5.5 cm, similar in size to her last ultrasound. RIGHT OVARY: 2.6 cmx 2.7 cmx1.9 cm with a volume of 7.1ml. There is a small cyst in the right ovary measuring 2.0 cm x 1.5 cm x 1.6 cm Both ovaries are seen and appear normal. Doppler flow to both ovaries are seen. There is no fluid in the cul-de-sac. IMPRESSION: 1. Anteverted uterus normal in shape and size. The endometrium is difficult to visualize but appears thickened measuring 8.8 mm. 2. There is some thickening of the endocervical canal. It has a solid appearance. 3. The left ovary continues to have a persistent simple appearing 5.9 cm cyst. 4. The right ovary has a simple cyst measuring 2 cm. 5. Suggest follow-up ultrasound in 3-6 months for the persistent left ovarian cyst. Likely benign. 6. Consider endometrial and cervical sampling for the thickened endometrium and thickened cervical canal. Dictated by: Nik Hanley MD 04/19/2024 14:40 Nik Hanley MD in [place] 04/19/2024 14:40
== END 2024-04-19 23:59 | disposition home or self-care (01) ==
LOC: RAD 12:43
PROVIDERS: PCP Family Medicine; Visit Provider Obstetrics & Gynecology
DX: R93.89 Abnormal findings on diagnostic imaging of other specified body structures (principal); N83.202 Unspecified ovarian cyst, left side
CPT/HCPCS: 76830

== ENCOUNTER 2024-04-25 09:53 | Outpatient (CLI) | payer BC, SELFPAY ==
[2024-04-25 18:21] LABS: Basophils # 0.1 K/mm3 (0-0.2); Basophils % 0.8 % (0.1-2.0); Eosinophils # 0.1 K/mm3 (0.0-0.4); Eosinophils % 1.5 % (0.1-12.0); Hematocrit 42.9 % (37.0-47.0); Hemoglobin 14.1 g/dL (12.2-16.2); Lymphocytes % 25.4 % (10-50); Mean Corpuscular HGB Conc 32.9 g/dL (31.8-35.4); Mean Corpuscular Hemoglobin 31.1 pg (27.0-31.2); Mean Corpuscular Volume 94.4 fl (81-99); Mean Platelet Volume 9.6 fl (7.4-10.4); Monocytes # 0.4 K/mm3 (0.1-1.0); Monocytes % 4.6 % (1.7-9.3); Neutrophils # 5.2 K/mm3 (1.8-7.8); Neutrophils % 67.6 % (37.0-80.0); Platelet Count 207 K/mm3 (142-424); Red Blood Count 4.54 M/mm3 (4.20-5.40); Red Cell Distribution Width 13.1 % (11.5-17.5); White Blood Count 7.7 K/mm3 (4.8-10.8)
[2024-04-25 18:59] LABS: Alanine Aminotransferase 20 U/L (12-78); Albumin/Globulin Ratio 1.6 (1.1-1.8); Alkaline Phosphatase 82 U/L (38-126); Anion Gap 11.3 mEq/L (5-15); Aspartate Amino Transferase 22 U/L (14-36); Bilirubin,Direct 0.4 mg/dl (0.0-0.4); Bilirubin,Indirect 0.1 mg/dL (0.0-0.9); Bilirubin,Total 0.5 mg/dl (0.2-1.3); Bilirubin,Unconjugated 0.1 mg/dL (0.0-1.1); Blood Urea Nitrogen 17 mg/dl (7-17); Calcium 9.2 mg/dl (8.4-10.2); Carbon Dioxide 24 mmol/L (22.0-30.0); Chloride 109 mmol/L (98-107); Cholesterol 164 mg/dl (140-200); Estimated Glomerular Filt Rate 46 ml/min (>60); GFR (African American) 56 ML/MIN (>60); Globulin 2.5 g/dL (1.3-3.2); Glucose 104 mg/dl (74-100); HDL Cholesterol 55 mg/dl (40-60); Potassium 4.3 mmoL/L (3.5-5.1); Sodium 140 mmol/L (136-145); Total Protein,Serum 6.5 g/dl (6.3-8.2); Triglycerides 102 mg/dl (30-150); VLDL Cholesterol 20 mg/dL (0-40)
[2024-04-25 19:10] LABS: Direct LDL Cholesterol 91.63 mg/dL (100-129)
== END 2024-04-25 23:59 | disposition home or self-care (01) ==
LOC: LAB.DROPOF 04-26 08:43
PROVIDERS: PCP Family Medicine; Visit Provider Family Medicine
DX: R73.03 Prediabetes (principal); Z12.31 Encounter for screening mammogram for malignant neoplasm of breast; E55.9 Vitamin D deficiency, unspecified
CPT/HCPCS: 80053; 80061; 80076; 82306; 83036; 85025

== ENCOUNTER 2024-05-23 10:20 | Outpatient (CLI) | payer BC, SELFPAY ==
[2024-05-24 12:09] LABS: Cancer Antigen (CA) 125 9.1 U/mL (0.0-38.1)
== END 2024-05-23 23:59 | disposition home or self-care (01) ==
LOC: LAB 10:21
PROVIDERS: PCP Family Medicine; Visit Provider Obstetrics & Gynecology
DX: Z12.31 Encounter for screening mammogram for malignant neoplasm of breast (principal)
CPT/HCPCS: 36415; 86316

== ENCOUNTER 2024-05-30 09:23 | Outpatient (CLI) | payer BC, SELFPAY ==
[2024-05-30 19:03] LABS: Alanine Aminotransferase 24 U/L (12-78); Albumin Level 4.1 g/dl (3.5-5.0); Albumin/Globulin Ratio 1.6 (1.1-1.8); Alkaline Phosphatase 77 U/L (38-126); Anion Gap 12.4 mEq/L (5-15); Aspartate Amino Transferase 26 U/L (14-36); Bilirubin,Total 0.5 mg/dl (0.2-1.3); Blood Urea Nitrogen 14 mg/dl (7-17); Calcium 9.6 mg/dl (8.4-10.2); Carbon Dioxide 25 mmol/L (22.0-30.0); Chloride 108 mmol/L (98-107); Estimated Glomerular Filt Rate 64 ml/min (>60); GFR (African American) 78 ML/MIN (>60); Globulin 2.5 g/dL (1.3-3.2); Glucose 105 mg/dl (74-100); Potassium 4.4 mmoL/L (3.5-5.1); Sodium 141 mmol/L (136-145); Total Protein,Serum 6.6 g/dl (6.3-8.2)
== END 2024-05-30 23:59 | disposition home or self-care (01) ==
LOC: LAB.DROPOF 05-31 09:23
PROVIDERS: PCP Family Medicine; Visit Provider Family Medicine
DX: N28.9 Disorder of kidney and ureter, unspecified (principal)
CPT/HCPCS: 80053

== ENCOUNTER 2024-11-01 14:28 | Outpatient (CLI) | payer BC, SELFPAY ==
--- NOTE | 2024-11-01 14:45 | MM_ITS ---
PROCEDURE INFORMATION: Exam: MG Bilateral Diagnostic Breast Tomosynthesis MG Bilateral Diagnostic Mammography Exam date and time: 11/01/2024 2:37 PM Age: 59 years old Clinical indication: Six-month follow-up for probably benign right breast mass, initiated 02/19/2023, and screening. TECHNIQUE: Imaging protocol: Bilateral Diagnostic tomosynthesis and 2D mammography including computer-aided detection (CAD) when performed. Unilateral or bilateral exam. Diagnostic mammography of the bilateral breasts including computer-aided detection (CAD) when performed. Bilateral exam. COMPARISON: 1. MG MM DIG MAMM DX UNILAT RT CAD 03/24/2024 12:51 PM 2. MG MM DIG MAMM BI DX W/CAD 09/21/2023 1:23 PM 3. MG MM DIG SCREENING MAMM BI W/CAD 02/19/2023 7:59 AM 4. MG DMSB DIG MAMM-SCREEN ALLAN W/CAD 11/27/2016 4:33 PM FINDINGS: MAMMOGRAPHY: Breast mammogram findings: Breast composition: There are scattered areas of fibroglandular density. Mass: Stable are slightly smaller 0.5 cm mass in the right upper outer quadrant middle 3rd, compared to 02/19/2023. Architectural distortion: None. Calcifications: No suspicious calcifications. Asymmetric density: None. Skin thickening: None. Axillary adenopathy: None. IMPRESSION: Stable probably benign right breast mass, initiated 02/19/2023, suggest continued six-month follow-up right diagnostic mammography to complete a 2 year cycle of follow-up. No mammographic evidence of malignancy on the left. ASSESSMENT: BI-RADS Category 3: Probably benign.
== END 2024-11-01 23:59 | disposition home or self-care (01) ==
LOC: RAD 14:29
PROVIDERS: PCP Family Medicine; Visit Provider Family Medicine
DX: N63.11 Unspecified lump in the right breast, upper outer quadrant (principal)
CPT/HCPCS: 77062; 77066; G0279

== ENCOUNTER 2025-02-07 07:14 | Outpatient (CLI) | payer BC, SELFPAY ==
--- OUTSIDE RECORDS SUMMARY | 2025-02-07 07:16 | XMS_ITS | Clinical Summary ---
Author Organization Healthcare Address [address] [place] [address] Care Team Providers Care Insurance Claims Processor Name Role Phone Kirby Garcia MD Primary Care Provider [phone] Allergies No known active allergies Medications atorvastatin (Lipitor) 10 MG tablet 03/26/2022 Active ergocalciferol 1.25 MG (22884 UT) capsule 03/10/2022 Active famotidine (Pepcid) 20 MG tablet 03/26/2022 Active cephalexin (Keflex) 500 MG capsule 03/26/2022 Active Active Problems Problem Noted Date Diagnosed Date Laceration of right thumb wi thout foreign body without damage to nail 04/14/2022 Open avulsion fracture of phalanx of right thumb 03/31/2022 Social History Tobacco Use Types Packs/Day Years Used Date Smoking Tobacco: Never Smokeless Tobacco: Never Tobacco Cessation:Counseling Given: Not Answered Alcohol Use Standard Drinks/Week Comments Never 0 (1 standard drink = 0.6 oz pur e alcohol) PHQ-2 Answer Date Recorded Patient Health Questionnaire-2 Score 0 03/31/2022 Comments Unknown Sex and Gender Information Value Date Recorded Sex Assigned at Not on file Legal Sex Female 7:02 PM EDT Gender Identity Not on file Sexual Orientation Not on file Last Filed Vital Signs Vital Sign Reading Time Taken Comments Blood Pressure 120/77 04/14/2022 2:12 PM EST Pulse 65 04/14/2022 2:12 PM EST Temperature 36.3 C (97.4 F) 03/31/2022 2:47 PM EDT Respiratory Rate - - Oxygen Saturation 97% 04/14/2022 2:12 PM EST Inhaled Oxygen Concentration - - Weight 74.8 kg (165 lb) 04/14/2022 2:12 PM EST Height 165.1 cm (5' 5 ) 04/14/2022 2:12 PM EST Body Mass Index 27.46 04/14/2022 2:12 PM EST Plan of Treatment Health Maintenance Due Date Last Done Comments [facility]-HIV Screening 1965 [facility]-Hepatitis C Screening 1965 [facility]-/Child/Adol SDOH Screenings 1965 [facility]-Obesity Intervention 09/23/1971 [facility]- SDOH Screenings 09/23/1983 [facility]-Adult SDOH Screenings 09/23/1983 [facility]-Hepatitis B Vaccines (1 of 3 - 19+ 3-dose series) 1984 [facility]-Pap Smear 1986 [facility]-Cervical Cancer Screening 09/23/1995 [facility]-HPV/Cotest 09/23/1995 [facility]-DTaP,Tdap,and Td Vaccine s (1 - Tdap) 08/02/1996 08/01/1996 CT Colonography 2010 Colonoscopy 2010 FIT-DNA 2010 FIT 2010 FOBT 2010 Sigmoidoscopy 2010 [facility]-Colorectal Cancer Screening 2010 [facility]-Breast Cancer Screening 09/23/2015 [facility]-Pneumococcal Vaccine: 50 + Years (1 of 1 - PCV) 09/23/2015 [facility]-Zoster Vaccines (1 of 2) 09/23/2015 [facility]-Depression Screening 03/31/2023 03/31/2022 [id number] Vaccine (1 - 20 24-25 season) 2024 [facility]-Influenza Vaccine (#1) 2025 [facility]-Hepatitis A Vaccines Aged Out 10/21/2018 No longer eligible based on patient's age to complete this topic HPV Vaccines Aged Out No longer eligi ble based on patient's age to complete this topic [facility]-HIB Vaccines Aged Out No longer e ligible based on patient's age to complete this topic [facility]-IPV Vaccines Aged Out No longer e ligible based on patient's age to complete this topic [facility]-Rotavirus Vaccines Aged Out No lo nger eligible based on patient's age to complete this topic Insurance [facility] Care Teams Insurance Claims Processor Relationship Specialty Start Date End Date Kirby Garcia MD [address] [place] [address] MALIHA Cosem [id number] PCP - General 03/31/22
--- NOTE | 2025-02-07 07:30 | US_ITS ---
FINAL REPORT TECHNIQUE: Sonographic images of the right upper quadrant were obtained. CLINICAL HISTORY: ruq tenderness COMPARISON: None FINDINGS: PANCREAS: The tail of the pancreas is obscured by overlying bowel gas. LIVER: Homogeneous. No focal hepatic lesion. No intrahepatic biliary ductal dilatation. GALLBLADDER: No gallstones. No gallbladder wall thickening or pericholecystic fluid. COMMON DUCT: 2 mm. Normal for age. RIGHT KIDNEY: The right kidney is surgically absent. FREE FLUID: None. IMPRESSION: Prior right nephrectomy. No acute right upper quadrant abnormality is identified. Reviewed, Interpreted and Dictated by Renee Alcantara MD Transcribed by Opal Beaulieu Authenticated and [facility]
== END 2025-02-07 23:59 | disposition home or self-care (01) ==
LOC: RAD 07:14
PROVIDERS: PCP Family Medicine; Visit Provider Family Medicine
DX: K90.49 Malabsorption due to intolerance, not elsewhere classified (principal); R10.821 Right upper quadrant rebound abdominal tenderness; R10.11 Right upper quadrant pain; R10.13 Epigastric pain; Z90.5 Acquired absence of kidney
CPT/HCPCS: 76705